=== PATIENT | male | born 1950 | race Caucasian/White ===

== ENCOUNTER 2020-09-18 07:29 | Day surgery (SDC) | payer MEDICARE, SELFPAY ==
[2020-09-12 12:54] VITALS: BMI 22.1
--- NOTE | 2020-09-17 09:06 | P.CONAN_ITS ---
Documented by User: Silva Patel 09/17/20 09:07 HPI - Anesthesia Eval Consult details Narrative: 69yo M for Colonoscopy [facility] Past Medical History Medical History Arthritis COPD (chronic obstructive pulmonary disease) History of back pain History of BPH Surgical History Surgical History History of back surgery History of open reduction and internal fixation (ORIF) procedure Hx of colonoscopy Social History Social History Are you a primary patient care representative to a significant other at home: No Do you presently have visiting nurse or other home services: No Smoking Status: Current every day smoker Packs Per Day: 1 Cigarettes Per Day: 20.0 Years Smoked: 40+ Smoked in Last 30 Days: Yes Patient Interested in Nicotine Replacement: No Patient Given Instructions on How to Stop Smoking: Yes Date Education Initiated: 09/12/20 Use of substances other than those prescribed or required for medical reasons: No Have you been hit, kicked, punched, or otherwise hurt by someone within the past year? If so, by whom?: No Advance Directives: No Advance Directives Information Provided: No Advance Directives on File: No Recently lost weight without trying: No Meds Allergies Allergy/AdvReac Type Severity Reaction Status Date / Time No Known Allergies Allergy Verified 09/18/20 07:40 Home Medications Medication Instructions Recorded Confirmed Type gabapentin 900 mg PO BEDTIME 09/12/20 09/12/20 History ibuprofen [Motrin] 800 mg PO TID PRN 09/12/20 09/12/20 History multivitamin 1 tab PO DAILY 09/12/20 09/12/20 History Exam Exam Date and Time: September 17, 2020 0907 Height,Weight and Vital Signs: Height 5 ft 8 in Weight 66.224 kg Assessment and Plan Assessment Anesthesia Assessment: Chart Reviewed Documented by User: Marely Griffith 09/18/20 08:55 [facility] Past Medical History Medical History Arthritis COPD (chronic obstructive pulmonary disease) History of back pain History of BPH Surgical History Surgical History History of back surgery History of open reduction and internal fixation (ORIF) procedure Hx of colonoscopy Social History Social History Are you a primary patient care representative to a significant other at home: No Do you presently have visiting nurse or other home services: No Smoking Status: Current every day smoker Packs Per Day: 1 Cigarettes Per Day: 20.0 Years Smoked: 40+ Smoked in Last 30 Days: Yes Patient Interested in Nicotine Replacement: No Patient Given Instructions on How to Stop Smoking: Yes Date Education Initiated: 09/12/20 Use of substances other than those prescribed or required for medical reasons: No Have you been hit, kicked, punched, or otherwise hurt by someone within the past year? If so, by whom?: No Advance Directives: No Advance Directives Information Provided: No Advance Directives on File: No Recently lost weight without trying: No Meds Allergies Allergy/AdvReac Type Severity Reaction Status Date / Time No Known Allergies Allergy Verified 09/18/20 07:40 Home Medications Medication Instructions Recorded Confirmed Type gabapentin 900 mg PO BEDTIME 09/12/20 09/12/20 History ibuprofen [Motrin] 800 mg PO TID PRN 09/12/20 09/12/20 History multivitamin 1 tab PO DAILY 09/12/20 09/12/20 History Exam Airway Mallampati Class: III TM Dist: >3cm Neck ROM: Full Denture: Upper and Lower Loose/Missing/Broken Teeth: No Heart: RRR Lungs: CTA Assessment and Plan Assessment Anesthesia Assessment: Anesthesia Plan Discussed and Chart Reviewed Final Anesthetic Review NPO: Yes ASA Class: II Final Preanesthetic Review: Meds/Allgs Chart Reviewed, Consent Obtained/Reviewed and Anes Risks/Benef Reviewed Patient Risk: Low Procedure Risk: Low Anesthetic Plan Anesthetic Plan: MAC: Disposition: Standard PACU
[2020-09-18 07:53] VITALS: BP 139/73; PULSE 77; RESP 18; TEMP 36.3; O2SAT 97
[2020-09-18] MEDS: Lactated Ringers 1,000 ML 100 ML IVCONT (08:09)
[2020-09-18] MEDS: Sodium Phosphate,Mono-Dibasic 133 ML ENEMA PR (08:16)
--- NOTE | 2020-09-18 08:21 | PC.NURSE ---
LIQUID YELLOW WITH FEW STRANDS OF KANG
--- NOTE | 2020-09-18 10:39 | PM.OP ---
Brief Operative Note Date of Service: 09/18/20 Pre-op diagnosis: Screening Post-op diagnosis: other (Colon polyps) Procedure: Colonoscopy to cecum and TI with snare polypectomy and placement of 1 Resolution clip on the transverse colon polypectomy site. Surgeon: Kelton Paul Anesthesia: MAC Estimated blood loss (mL): 3.0 Pathology: other (A. Cecal polyp B. Ascending colon polyp C. Transverse colon polyp D. Polyp at 50cm) Condition: stable Disposition: PACU
--- NOTE | 2020-09-18 10:41 | OP_ITS ---
SURGEON: Kelton Paul MD INDICATIONS: Full consent has been obtained from him for this, including risks of bleeding and perforation. PREOPERATIVE DIAGNOSIS: POSTOPERATIVE DIAGNOSIS: PROCEDURE PERFORMED: Colonoscopy to the cecum and terminal ileum with snare polypectomy, and placement of a resolution clip. ESTIMATED BLOOD LOSS: COMPLICATIONS: ANESTHESIA: Monitored anesthesia care. ASSISTANTS: SPECIMENS: PREOPERATIVE DIAGNOSES: Colorectal cancer screening, personal history of colon polyps, and family history of colon cancer. POSTOPERATIVE DIAGNOSES: Colorectal cancer screening, personal history of colon polyps, and family history of colon cancer, colon polyps, diverticulosis, and internal hemorrhoids. DESCRIPTION OF PROCEDURE: The patient was placed in the left lateral decubitus position. The digital rectal exam revealed no abnormalities. The Olympus video pediatric colonoscope was entered into the rectum and advanced easily to the cecum. Once in the cecum, I did identify normal-appearing cecal pouch other than an approximately 6 mm polyp, which was snared and recovered by suction. The polypectomy site appeared clean, without any sign of residual polyp nor bleeding. The remainder of the cecum appeared normal. The terminal ileum was cannulated and appeared normal. The scope was then slowly withdrawn assessing all mucosal surfaces carefully. Preparation was excellent. In the ascending colon, was a flat approximately 5 or 6 mm polyp, which was snared and recovered by suction. The polypectomy site appeared clean, without any sign of residual polyp nor bleeding. In the transverse colon, was an approximately 8 mm polyp, which was snared and recovered by suction. There was some persistent oozing at the polypectomy site and a single resolution clip was applied with good hemostasis. The area was irrigated and observed and there was no sign of any active bleeding. At 50 cm, there was a flat approximately 8 mm polyp, which was snared and recovered by suction. The polypectomy site appeared clean, without any sign of residual polyp nor bleeding. I did not visualize any other polyps, colitis, nor angiodysplasia. There was a mild amount of sigmoid diverticulosis. In the rectum, scope was retroflexed visualizing small internal hemorrhoids, but no other pathology. The rectal mucosa appeared normal. The scope was straightened out and withdrawn from the patient. He tolerated the procedure well and was returned to the recovery area in stable condition. IMPRESSION: 1. Colon polyps, status post snare polypectomy. 2. Placement of a single resolution clip on the transverse colon and polypectomy site. 3. Diverticulosis. 4. Internal hemorrhoids. PLAN: The results of the pathology will be checked. Given today's findings and his previous history, as well as his family history, I would recommend a followup colonoscopy in 3 years for further surveillance. He will otherwise see me on a p.r.n. basis. He was advised not to use any aspirin and NSAIDs for 1 week. This has been discussed with his . MD RAINA Roberts/PAWEL / [id number]
== END 2020-09-18 10:35 | disposition home or self-care (01) ==
LOC: HO.SSS 07:29
PROVIDERS: PCP Internal Medicine; Visit Provider Internal Medicine
PROC: 0DJD8ZZ Inspection of Lower Intestinal Tract, Via Natural or Artificial Opening Endoscopic (ICD-10-PCS; CPT 45378; principal; 2020-09-18 08:30)
DX: Z12.11 Encounter for screening for malignant neoplasm of colon (principal); D12.0 Benign neoplasm of cecum; D12.2 Benign neoplasm of ascending colon; D12.3 Benign neoplasm of transverse colon; D12.6 Benign neoplasm of colon, unspecified; K57.30 Diverticulosis of large intestine without perforation or abscess without bleeding; K64.8 Other hemorrhoids; Z86.010 Personal history of colon polyps; Z80.0 Family history of malignant neoplasm of digestive organs
CPT/HCPCS: 45385; 88305

== ENCOUNTER 2021-06-17 12:24 | Outpatient (REF) | payer MEDICARE, SELFPAY ==
[2021-06-17 13:57] LABS: MANUAL DIFF FLAG NO
[2021-06-17 14:09] LABS: Basophils Percent Auto 0.5 % (0-2); Eosinophils Absolute Auto 0.5 X10*3/uL (0.0-0.4); Eosinophils Percent Auto 6.4 % (0-4); Hematocrit 53.4 % (42-52); Imm Gran Abs Auto 0.02 X10*3/uL (0.00-0.03); Imm Gran Pct Auto 0.3 % (0.0-0.4); Lymphocytes Absolute Auto 1.7 X10*3/uL (1.2-4.9); Mean Corpuscular HGB Conc 33.7 g/dl (31.0-36.0); Mean Corpuscular Hemoglobin 32.7 pg (27.0-33.0); Mean Corpuscular Volume 96.9 fL (80-98); Mean Platelet Volume 8.6 fL (9.4-12.4); Monocytes Absolute Auto 0.7 X10*3/uL (0.1-1.2); Neutrophils Absolute Auto 4.9 X10*3/uL (2.0-8.3); Neutrophils Percent Auto 61.8 % (45-73); Platelet Count 266 X10*3/uL (160-400); Red Blood Count 5.51 X10*6/uL (4.60-5.80); Red Cell Distribution Width 13.3 % (11.0-16.0); White Blood Count 7.9 X10*3/uL (4.8-10.8)
[2021-06-17 14:14] LABS: Alanine Aminotransferase 9 U/L (0-40); Alkaline Phosphatase 63 U/L (39-117); Anion Gap 13 (12-20); Aspartate Amino Transferase 17 U/L (5-37); Bilirubin Total 0.8 mg/dL (0.0-1.0); Blood Urea Nitrogen 14 mg/dL (9-16); Calcium 9.5 mg/dL (8.4-10.2); Carbon Dioxide 26 mmol/L (22-29); Chloride 104 mmol/L (96-108); Estimated Glomerular Filt Rate 59; Glucose Random 108 mg/dL (60-115); Potassium 4.3 mmol/L (3.3-5.1); Sodium 139 mmol/L (135-145); Total Protein 6.9 g/dL (6.5-8.0)
== END 2021-06-17 12:25 | disposition home or self-care (01) ==
LOC: HO.HMGCLDS 12:24
PROVIDERS: PCP Internal Medicine; Visit Provider Internal Medicine
DX: Z01.818 Encounter for other preprocedural examination (principal); H26.9 Unspecified cataract
CPT/HCPCS: 36415; 80053; 85025

== ENCOUNTER 2021-09-24 10:09 | Outpatient (REF) | payer MEDICARE, SELFPAY ==
[2021-09-24 11:42] LABS: MANUAL DIFF FLAG NO
[2021-09-24 11:47] LABS: Basophils Percent Auto 0.4 % (0-2); Eosinophils Absolute Auto 0.6 X10*3/uL (0.0-0.4); Eosinophils Percent Auto 8.5 % (0-4); Hematocrit 50.5 % (42.0-52.0); Hemoglobin 16.8 g/dl (14.0-18.0); Imm Gran Abs Auto 0.03 X10*3/uL (0.00-0.03); Imm Gran Pct Auto 0.4 % (0.0-0.4); Lymphocytes Absolute Auto 1.6 X10*3/uL (1.2-4.9); Lymphocytes Percent Auto 22.7 % (20-40); Mean Corpuscular HGB Conc 33.3 g/dl (31.0-36.0); Mean Corpuscular Hemoglobin 31.9 pg (27.0-33.0); Mean Platelet Volume 8.3 fL (9.4-12.4); Monocytes Absolute Auto 0.7 X10*3/uL (0.1-1.2); Monocytes Percent Auto 9.6 % (2-11); Neutrophils Absolute Auto 4.1 x10*3/uL (2.0-8.3); Neutrophils Percent Auto 58.4 % (45-73); Platelet Count 264 X10*3/uL (160-400); Red Blood Count 5.26 X10*6/uL (4.60-5.80); Red Cell Distribution Width 12.8 % (11.0-16.0); White Blood Count 7.1 X10*3/uL (4.8-10.8)
[2021-09-24 12:01] LABS: Alanine Aminotransferase 15 U/L (0-40); Albumin Level 3.8 g/dL (3.5-5.0); Alkaline Phosphatase 67 U/L (39-117); Anion Gap 12 (12-20); Aspartate Amino Transferase 17 U/L (5-37); Bilirubin Total 0.6 mg/dL (0.0-1.0); Blood Urea Nitrogen 16 mg/dL (9-16); Calcium 9.3 mg/dL (8.4-10.2); Carbon Dioxide 29 mmol/L (22-29); Chloride 102 mmol/L (96-108); Cholesterol 213 mg/dL; Estimated Glomerular Filt Rate 58; Glucose Fasting 97 mg/dL (60-99); HDL Cholesterol 55 mg/dL; LDL Cholesterol Calculated 131 mg/dl; Potassium 4.4 mmol/L (3.3-5.1); Sodium 139 mmol/L (135-145); Total Protein 6.8 g/dL (6.5-8.0); Triglycerides 137 mg/dL
[2021-09-24 12:24] LABS: TSH reflex Free T4 1.54 uIU/mL (0.32-4.0)
== END 2021-09-24 10:10 | disposition home or self-care (01) ==
LOC: HO.HMGCLDS 10:09
PROVIDERS: PCP Internal Medicine; Visit Provider Internal Medicine
DX: E78.9 Disorder of lipoprotein metabolism, unspecified (principal); I73.9 Peripheral vascular disease, unspecified; M79.604 Pain in right leg
CPT/HCPCS: 36415; 80053; 80061; 84443; 85025

== ENCOUNTER → 2021-09-30 10:57 | Outpatient (BNVA) | payer MEDICARE, SELFPAY | PROVIDERS: PCP Internal Medicine; Visit Provider Surgery Vascular Surgery | DX: I73.9 Peripheral vascular disease, unspecified (principal) | CPT/HCPCS: 99202 ==

== ENCOUNTER 2021-10-21 13:34 | Outpatient (REF) | payer MEDICARE, SELFPAY ==
--- NOTE | ~2021-10-21 | US_ITS ---
EXAMINATION: ULTRASOUND ARTERIAL DUPLEX LOWER EXTREMITY BILATERAL CLINICAL INFORMATION: Peripheral vascular disease COMPARISON: None TECHNIQUE: Multiple 2-D grayscale and duplex Doppler ultrasound images of the arteries of the bilateral lower extremities were obtained. FINDINGS: Duplex Doppler interrogation of the bilateral lower extremities showed normal tri and biphasic arterial waveforms. Arterial peak systolic velocities are as follows: RIGHT: Common femoral: 94 cm/sec Profunda femoral: 30 cm/sec Superficial femoral proximal: 67 cm/sec Superficial femoral mid: 55 cm/sec. Superficial femoral distal: 56 cm/sec Popliteal: 35 cm/sec. Peroneal: 27 cm/sec Posterior tibial (prox/mid/distal): 28/35/46cm/sec Ankle-brachial index: 0.56 LEFT: Common femoral: 106 cm/sec Profunda femoral: 28 cm/sec Superficial femoral proximal: 70 cm/sec Superficial femoral mid: 61 cm/sec. Superficial femoral distal: 51 cm/sec Popliteal: 34 cm/sec. Peroneal: 33 cm/sec Posterior tibial (prox/mid/distal): 12/12/33cm/sec Ankle-brachial index: 0.67 Mild to severe echogenic atherosclerotic plaque is seen bilaterally most pronounced distally. US/US arterial duplex LE BI IMPRESSION: 1. No hemodynamically significant arterial stenosis bilaterally. 2. Moderate to severe echogenic atherosclerotic plaque, most pronounced distally.
== END 2021-10-21 13:35 | disposition home or self-care (01) ==
LOC: HO.US 13:34
PROVIDERS: PCP Internal Medicine; Visit Provider Surgery Vascular Surgery
DX: I73.9 Peripheral vascular disease, unspecified (principal)
CPT/HCPCS: 93925

== ENCOUNTER → 2021-10-28 10:22 | Outpatient (BNVA) | payer MEDICARE, SELFPAY | PROVIDERS: PCP Internal Medicine; Visit Provider Surgery Vascular Surgery | DX: I73.9 Peripheral vascular disease, unspecified (principal) | CPT/HCPCS: 99212 ==

== ENCOUNTER 2021-11-19 05:55 | Day surgery (SDC) | payer MEDICARE, SELFPAY ==
[2021-11-19] VITALS (8 sets, daily range): BP systolic 122–143; BP diastolic 57–89; PULSE 64–80; RESP 18; TEMP 36.6–36.7; O2SAT 98; BMI 23.0
[2021-11-19 06:37] LABS: MANUAL DIFF FLAG NO
[2021-11-19 06:39] LABS: Basophils Percent Auto 0.5 % (0-2); Eosinophils Percent Auto 12.9 % (0-4); Hematocrit 50.3 % (42.0-52.0); Hemoglobin 16.7 g/dl (14.0-18.0); Imm Gran Abs Auto 0.02 X10*3/uL (0.00-0.03); Imm Gran Pct Auto 0.2 % (0.0-0.4); Lymphocytes Absolute Auto 1.8 X10*3/uL (1.2-4.9); Lymphocytes Percent Auto 22.6 % (20-40); Mean Corpuscular HGB Conc 33.2 g/dl (31.0-36.0); Mean Corpuscular Hemoglobin 31.9 pg (27.0-33.0); Mean Platelet Volume 8.2 fL (9.4-12.4); Monocytes Absolute Auto 0.6 X10*3/uL (0.1-1.2); Monocytes Percent Auto 7.2 % (2-11); Neutrophils Absolute Auto 4.5 x10*3/uL (2.0-8.3); Neutrophils Percent Auto 56.6 % (45-73); Platelet Count 274 X10*3/uL (160-400); Red Blood Count 5.24 X10*6/uL (4.60-5.80); Red Cell Distribution Width 13.2 % (11.0-16.0)
[2021-11-19 06:58] LABS: Blood Urea Nitrogen 16 mg/dL (9-16); Creatinine Clr Calc Pharmacy 52.7; Estimated Glomerular Filt Rate 57
[2021-11-19] MEDS: iohexoL 300 MG/ML 100 ML INFUS..BTL IV (09:12)
--- NOTE | 2021-11-19 09:30 | P.OP_ITS ---
Operative Note Operative Note Date of Service: 11/19/21 Narrative: Angiogram report from [facility] Preoperative diagnosis: Atherosclerosis of bilateral lower extremity with activity limiting claudication Postoperative diagnosis: Same Procedure: 1. Ultrasound-guided left common femoral access 2. Ultrasound-guided right common femoral access 3. Aortogram with right lower extremity runoff Surgeon:Corby Vences M.D., FACS, RPVI Galvanizer Zinc:None Anesthesia: Local with moderate conscious sedation. Total intraservice moderate sedation time was 32 minutes. I monitored the patient's level of consciousness and physiologic status continuously throughout the procedure. Specimens:none Drains:none Estimated blood loss: Less than 10 ml Implant: None Indications: 70-year-old gentleman with severe activity limiting claudication. He had noninvasive testing demonstrating atherosclerotic disease. He now presents for endovascular intervention The patient has signed the informed consent after reviewing risks, complications, benefits, and alternatives previously discussed with the patient. The patient was given the opportunity to ask any additional questions or voice any concerns. All questions were answered to the patient's satisfaction. Procedure in detail: Patient was brought to the angiography suite prior to which a time-out was called for patient identification and site verification. Bilateral groins were prepped and draped in the standard surgical fashion. Under ultrasound guidance left common femoral was punctured with micro puncture needle and wire. We were unable to advance the catheter. We subsequently turned our attention to the right side. We used a micro puncture needle and wire. We were able to advance the catheter in to the external iliac. Subsequently a 5 Wolof micro sheath was then placed. Aortogram was then undertaken from the groin. Through the micro sheath we then performed a right lower extremity runoff. Procedure was then terminated. Sheath was removed and there direct pressure was held for 10 minute Interpretation of films: 1. Ultrasound demonstrates appropriate femoral puncture of right and left. Image of which was saved. 2. Aortogram demonstrates appropriate caliber aorta, with severe atherosclerotic disease at the distal end. 3. Iliac images demonstrate left-sided total occlusion, right side severe disease throughout 4. Right Leg Common femoral artery: Significant disease with at least 50% luminal narrowing Profundus Femoris: No significant disease Superficial femoral artery: Patent all the way through Popliteal artery (p1,p2,p3): Normal Anterior tibial artery: No significant disease Peroneal artery: Diminutive but present Posterior tibial artery: No significant disease Dorsalis pedis/plantar arch: Unable to reflux contrast down through the pedal arch Conclusion: 1. Significant aortic atherosclerotic disease per along with iliacs. Unable to image. Patient will require CT angiogram 2. Anticoagulation status: No change This note is constructed using voice recognition software. While every effort has been made to ensure accuracy, real estate development manager errors may have been included. Thank you for allowing me to participate in the care of your patient. Yours sincerely, Corby Vences MD, FACS, R.P.V.I.
== END 2021-11-19 09:40 | disposition home or self-care (01) ==
PROVIDERS: PCP Internal Medicine; Visit Provider Surgery Vascular Surgery
DX: I70.211 Atherosclerosis of native arteries of extremities with intermittent claudication, right leg (principal); M79.661 Pain in right lower leg; J44.9 Chronic obstructive pulmonary disease, unspecified; Z87.891 Personal history of nicotine dependence
CPT/HCPCS: 36246; 36415; 75630; 76937; 82565; 84520; 85025; 99152; 99153; J2250; J3010; Q9967

== ENCOUNTER 2021-11-25 09:24 | Outpatient (REF) | payer MEDICARE, SELFPAY ==
--- NOTE | ~2021-11-25 | CT_ITS ---
STUDY PERFORMED: CT ANGIOGRAPHY ABDOMEN, PELVIS AND LOWER EXTREMITY RUNOFF WITH CONTRAST HISTORY: Peripheral vascular disease. DESCRIPTION: Routine abdominal aorta and lower extremity runoff CTA protocol with contrast was performed. 100 mL of Omnipaque 350 was administered. 3D POSTPROCESSING: Multiple 3-D angiographic images were processed from the initial data set by the [facility] under concurrent physician supervision. DLP: 625 mGy-cm. COMPARISON: Angiogram right lower extremity 11/19/2021. FINDINGS: VASCULAR: Abdominal Aorta: The distal thoracic aorta appears normal. The upper abdominal aorta appears normal. There is abrupt occlusion of the aorta at a level just below the renal arteries. There are enlarged visualized distal internal mammary arteries and inferior epigastric arteries as well as lateral thoracic arteries contributing to collateral flow. Right Lower Extremity: - Common Iliac Artery: Occluded. - Internal Iliac Artery: Occluded. - External Iliac Artery: Occluded. - Common Femoral Artery: Distal reconstitution with posterior plaque present. - Profunda Femoral Artery: Patent with some mild proximal disease. - Superficial Femoral Artery: Widely patent with a mild approximately 50% area of stenosis at the adductor canal ([id number]). - Popliteal Artery: Widely patent. - Posterior Tibial Artery: Normal. - Peroneal Artery: Normal. - Anterior Tibial Artery: Widely patent with some mild disease. Left Lower Extremity: - Common Iliac Artery: Occluded. - Internal Iliac Artery: Occluded. - External Iliac Artery: Occluded. - Common Femoral Artery: Distal reconstitution with posterior plaque. - Profunda Femoral Artery: Patent. - Superficial Femoral Artery: Some minimal disease at the adductor canal without significant stenosis. - Popliteal Artery: Patent. - Posterior Tibial Artery: Patent. - Peroneal Artery: Patent. - Anterior Tibial Artery: Patent. Celiomesenteric Arteries: The celiac and SMA are widely patent. The SUZANNE is occluded as it arises from the occluded segment of the infrarenal aorta. Renal Arteries: 2 renal arteries on each side which are patent. NONVASCULAR: Lung Bases: The visualized lung bases are unremarkable. Liver, Gallbladder and Biliary Tree: The liver is normal in size, shape, and attenuation. No focal hepatic lesion or biliary ductal dilatation is present. The gallbladder is unremarkable with no evidence of radiopaque gallstones, gallbladder wall thickening, or obvious pericholecystic inflammatory changes. Pancreas: Unremarkable. Spleen: Unremarkable. Adrenal Glands: Unremarkable. Kidneys and Ureters: The kidneys are normal in size, shape, and attenuation. Benign Bosniak class I renal cysts are present . No further imaging or follow-up is necessary. No solid renal masses are seen. No hydronephrosis, hydroureter, or calculi seen. No perinephric stranding. Bladder: Unremarkable. Gastrointestinal Tract: The small and large bowel are unremarkable. The appendix is unremarkable. Abdominal Wall: No significant hernia is appreciated. Lymph Nodes: No retroperitoneal lymphadenopathy. Pelvic Viscera: Unremarkable. Osseous Structures: Marked degenerative changes in the spine from L1 through L5. No bony destructive lesions. CT/CT angio abd aorta runoff IMPRESSION: 1. 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 2. On the right, there is an approximately 50% stenosis at the adductor canal in the SFA with 3-vessel runoff noted. 3. On the left, there is minimal disease in the SFA with 3-vessel runoff. 4. Nonvascular findings as described above.
[2021-11-25] MEDS: iohexoL 350 MG/ML 100 ML INFUS..BTL IV (10:13)
== END 2021-11-25 09:25 | disposition home or self-care (01) ==
LOC: HO.CT 09:24
PROVIDERS: Visit Provider Surgery Vascular Surgery
DX: I73.9 Peripheral vascular disease, unspecified (principal)
CPT/HCPCS: 75635; Q9967

== ENCOUNTER → 2021-12-02 08:56 | Outpatient (BNVA) | payer MEDICARE, SELFPAY | PROVIDERS: PCP Internal Medicine; Visit Provider Surgery Vascular Surgery | DX: I74.09 Other arterial embolism and thrombosis of abdominal aorta (principal) | CPT/HCPCS: 99212 ==

== ENCOUNTER → 2021-12-04 10:20 | Outpatient (BNVA) | payer MEDICARE, SELFPAY | PROVIDERS: PCP Internal Medicine; Referring Provider Surgery Vascular Surgery; Visit Provider Internal Medicine | DX: Z01.810 Encounter for preprocedural cardiovascular examination (principal); I74.09 Other arterial embolism and thrombosis of abdominal aorta | CPT/HCPCS: 93005; 99202 ==

== ENCOUNTER → 2021-12-10 | Outpatient (REF) | payer MEDICARE, SELFPAY ==
--- NOTE | 2021-12-11 06:59 | CA_ITS ---
Acquisition Time: 2021-12-11 07:58:49 Total Exercise Time: 00:02:00 Test Indications: Ischemia Evaluation Medications: ELIQUIS ASA ROSUVASTATIN Protocol: LEXISCAN Max HR: 098 BPM 65% of Pred: 149 BPM Max BP: 154/072 mmHG Max Work Load: 1.0 METS Pharmacological stress test with Lexiscan injection, while sitting and exercising right arm, without anginal symptoms, with runs of atrial bigeminy following injection and in recovery, with normotensive response to injection, with nondiagnostic EKG for ischemia. In recovery he reported a latigue and heaviness in his arms and legs that was treated with Aminophylline 75mg IVP to reverse Lexiscan with resolution of symptom. Nuclear images pending. Test reviewed with Dr Flanagan. Referred By: Phillip Reza Overread By: SUE ROLLINS
--- NOTE | 2021-12-11 06:59 | CA_ITS ---
Transthoracic Echocardiogram Patient (Last, First, Middle): Kelton Clark R Gender: Male Date of : 1950 Age: 71 Procedure Date: 12/11/2021 Procedure Type: Transthoracic Echocardiogram Location: OP Height: 172.72 cm Weight: 70.31 kg BSA: 1.83 m2 Heart Rate: bpm BP: 138 / 73 mmHg Horses Or Mules Teamster: THALIA Arvizu MD: Phillip Reza MD Welfare Worker: Bert Flanagan MD Symptoms: I25.10 - Atherosclerotic heart disease of [place] coronary... Study Quality: Fair ECG Rhythm: Sinus Conclusions: - 1. Normal LV systolic function with grade 1 diastolic dysfunction 2. Fibrocalcific aortic valve changes noted with normal cardiac valvular Doppler 3. Normal RV systolic pressure 4. No gross pericardial effusion Findings Left Ventricle Normal left ventricular size, thickness, and systolic function. The visually estimated ejection fraction is between 60-65%. There is no evidence of regional wall motion abnormalities. Spectral Doppler is indicative of an impaired relaxation filling pattern. E/E prime ratio is <8, consistent with normal filling pressures. Evidence suggests grade I (mild) diastolic dysfunction. Right Ventricle Normal right ventricular cavity size and systolic function. Atria Both atria are normal in size. There is no evidence of interatrial shunt. Aortic Valve There is mild calcification of the aortic valve. There is mild thickening of the aortic valve. There is no aortic valve stenosis. There is no aortic valve regurgitation. Mitral Valve There is mild anterior and posterior mitral leaflet thickening. There is mild mitral annular calcification. There is trace mitral valve regurgitation. There is no mitral valve stenosis. Pulmonic Valve The pulmonic valve was not well visualized. Tricuspid Valve Likely normal tricuspid valve structure and function. There is trace tricuspid valve regurgitation. The right ventricular systolic pressure is normal. The right ventricular systolic pressure is 23 mmHg. Normal right atrial pressure. There is no evidence of pulmonary hypertension. Great Vessels All visible segments of the aorta are normal in size. The pulmonary artery was not well visualized. Small plaque is seen in the sino tubular ridge and ascending aorta. Venous The inferior vena cava is normal in size and collapses greater than 50% with inspiration. Pericardium/Pleural There is no evidence of pericardial effusion. Prior Study Comparison No prior study available for comparison. Measurements 2D Linear Measurements IVSd: 1.01 0.6-0.9/0.6-1.0 cm LVIDd: 3.95 3.9-5.3/4.2-5.9 cm LVIDd Index: 2.16 2.4-3.2/2.2-3.1 cm/m2 LVIDs: 2.57 2.0-3.6 cm LVPWd: 1.03 0.7-1.1 cm LA Diam: 3.10 2.7-3.8/3.0-4.0 cm LAIDs Index: 1.69 1.5-2.3 cm/m2 LV Mass: 159.42 67-162/88-224 g LV Mass Index: 87.12 43-95/49-115 g/m2 LVOT Diam: 2.30 3.0+(-)1.3 cm 2D Systolic Function EF 4C: 63.30 >55% EF 2C: 64.80 >55% EF BiP: 63.40 >55% Mitral Valve MV Pk E: 0.84 MV PK A: 1.08 MV Decel Time: 257.00 E/A: 0.80 E'Lateral: 9.68 E'Medial: 10.40 E/E' Med: 8.00 E/E' Lat: 8.60 PHT: 75.00 MVA PHT: 2.93 Decel Stone: 3.24 Aortic Valve AoV Pk Vince: 1.42 AoV Mn Vince: 0.94 AoV VTI: 0.25 AoV Pk Grad: 8.00 Aov Mn Grad: 4.00 ALEXANDRO Cont.VTI: 3.57 LVOT LVOT Pk Vince: 1.16 LVOT Mn Vince: 0.71 LVOT VTI: 0.21 LVOT Pk Grad: 5.00 LVOT Mn Grad: 2.00 LVOT Diam: 2.30 LVOT Area: 4.15 Diastolic Function MV Pk E: 0.84 MV Pk A: 1.08 E/A: 0.80 E'Medial: 10.40 E/E' Med: 8.00 E' Laterial: 9.68 E/E' Lat: 8.60 Right Ventricle TAPSE (mm): 22.40 TVS' Vince: 13.80 Tricuspid Valve TR Pk Vince: 2.23 TR Pk Grad: 20.00 RA Press: 3.00 RVSP: 23.00 Great Vessels Aorta Sinus of Valsalva: 3.15 2.0-3.[address] Ridge: 2.55 1.7-3.4 cm Ao Asc: 2.50 2.1-3.4 cm Ao Arch: 2.70 Updated in Other Vendor System with Status of Final Bert Flanagan MD electronically signed on 12/12/2021 11:54:37 AM with status of Final
== END ==
LOC: HO.CARD
PROVIDERS: PCP Internal Medicine; Visit Provider Internal Medicine
DX: Z01.810 Encounter for preprocedural cardiovascular examination (principal); I74.09 Other arterial embolism and thrombosis of abdominal aorta; I25.10 Atherosclerotic heart disease of native coronary artery without angina pectoris
CPT/HCPCS: 93017; 93306

== ENCOUNTER → 2021-12-11 06:55 | Outpatient (REF) | payer MEDICARE, SELFPAY ==
--- NOTE | ~2021-12-11 | NM_ITS ---
Myocardial perfusion study Indication: Preoperative cardiovascular risk stratification Technique: The patient was brought in for a Lexiscan perfusion study on 12/11/2021. Patient performed low-level exercise and was injected 0.4 mg of Lexiscan intravenously. Within a minute of injection, 25 mCi of sestamibi was given intravenously. Images were obtained using the SPECT gamma camera interlaced with the gating device. Images were obtained in supine position. Resting perfusion study was performed on 12/12/2021. Patient was administered 25 mCi of sestamibi intravenously at rest. Images were then obtained in supine position. Images obtained with CT attenuation. Total DLP 85 mGy-cm. Images were processed with the software and compared side to side in short axis, horizontal long axis and vertical long axis views. Findings: The stress perfusion study showed non attenuated images show mildly reduced uptake in the basal inferior wall of the basal inferoseptal wall of the LV myocardium. Remainder of the LV myocardium is normally perfused. Attenuation corrected images show of the distal anterior wall of the LV myocardium otherwise normal uptake in all segments.. The gated study shows normal LV systolic function with calculated LVEF of 64%. LV cavity is normal in size. The gated study shows normal systolic wall thickening and contraction of segments. Resting study shows no significant improvement perfusion study. Gating at rest reveals systolic wall motion with ejection fraction at 59%. The findings are consistent with no clear reversible defect suggestive of ischemia. NM/NM cardiolite stress test Impression: 1. Myocardial perfusion imaging study shows likely normal perfusion 2. Gated LVEF is 64% 3. Transient ischemic dilatation not present EKG is nondiagnostic for ischemia
== END ==
LOC: HO.CARD 06:55
PROVIDERS: PCP Internal Medicine; Visit Provider Internal Medicine
DX: Z01.810 Encounter for preprocedural cardiovascular examination (principal); I74.09 Other arterial embolism and thrombosis of abdominal aorta
CPT/HCPCS: 78452; A9500; J0280; J2785

== ENCOUNTER 2021-12-29 06:20 | Inpatient (IN) | payer MEDICARE, SELFPAY ==
[2021-12-17 12:58] VITALS: BP 145/67; PULSE 84; RESP 20; O2SAT 98; BMI 22.1
--- NOTE | 2021-12-17 13:14 | HO.ANESPROP2 ---
Documented by User: Silva Patel NP 12/25/21 14:30 HPI - Anesthesia Eval Consult details Narrative: 71yo M for Open Aortoiliac Bi Femoral Bypass Cardiac eval Echocardiogram/stress test findings noted. May proceed with vascular surgery. Intermediate cardiac risk. Eliquis for PVD PMFSH Active Problems Active Problems: All Active Problems (Updated 12/17/21 @ 12:57 by Paula Chavez, RN) Pre-op evaluation (Acute) Cataract (Acute) Lipid disorder (Acute) Leg pain, right (Acute) Peripheral vascular disease (Acute) Aortoiliac occlusive disease (Acute) Preop cardiovascular exam (Acute) Past Medical History Medical History (Updated 12/17/21 @ 13:20 by Paula Chavez RN) Arthritis CAD (coronary artery disease) COPD (chronic obstructive pulmonary disease) Elevated cholesterol History of back pain History of BPH On anticoagulant therapy PVD (peripheral vascular disease) Surgical History Surgical History (Updated 12/16/21 @ 12:34 by Paula Chavez RN) History of back surgery History of open reduction and internal fixation (ORIF) procedure Hx of colonoscopy Social History Social History Housing: House Are you a primary respiratory care instructor to a significant other at home: No Do you presently have visiting nurse or other home services: No Patient Tobacco Use Status: Current everyday Tobacco user Tobacco use type: Cigarette Cigarette Packs Per Day: 1 Cigarettes Per Day: 15 Years Smoked: 50 Smoked in Last 30 Days: Yes Patient Interested in Nicotine Replacement: Yes Patient Given Instructions on How to Stop Smoking: Yes Date Education Initiated: 12/17/21 Second Hand Smoke Exposure: No Use of substances other than those prescribed or required for medical reasons: Yes Substance Use Frequency: Occasionally Have you been hit, kicked, punched, or otherwise hurt by someone within the past year? If so, by whom?: No Are you DNR?: Yes Advance Directives: No Advance Directives Information Provided: Yes Advance Directives on File: No Recently lost weight without trying: No Eating poorly because of decreased appetite: No Nutrition Risks: No Nutritional Risk Poor oral hygiene: No (Full Dentures) Current occupational status: retired Narrative Narrative: No recent illness RUSHING at baseline, cutting back on smoking. No CP. Very minimal activity d/t PVD Meds Allergies Allergy/AdvReac Type Severity Reaction Status Date / Time No Known Allergies Allergy Verified 12/16/21 13:27 Home Medications Medication Instructions Recorded Confirmed Last Taken Type aspirin 81 mg tablet,delayed 81 mg PO DAILY 12/02/21 12/16/21 Unknown History release (Adult Aspirin Regimen) ibuprofen 800 mg tablet 800 mg PO Q8H 12/02/21 12/16/21 Unknown History Exam Exam Date and Time: December 17, 2021 1314 Height,Weight and Vital Signs: Height 5 ft 10 in Weight 69.853 kg Last Vital Signs Pulse 84 12/17/21 12:58 Resp 20 12/17/21 12:58 BP 145/67 H 12/17/21 12:58 Pulse Ox 98 12/17/21 12:58 Narrative Narrative: EKG 12/2021 sinus rhythm at 65/Min; rightward axis; no significant ST-T changes and otherwise unremarkable. ECHO 12/2021 Conclusions: - 1.? Normal LV systolic function with grade 1 diastolic ? dysfunction? 2. Fibrocalcific aortic valve changes noted with normal cardiac? valvular Doppler ? 3.? Normal RV systolic pressure? 4. No gross pericardial effusion ?? NM cardiolite stress test 12/2021 Impression: ? 1.? Myocardial perfusion imaging study shows likely normal perfusion 2.? Gated LVEF is 64% 3. Transient ischemic dilatation not present ? EKG is nondiagnostic for ischemia ? CT angio abd aorta runoff 11/2021 IMPRESSION: 1.? 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 2.? On the right, there is an approximately 50% stenosis at the adductor canal in the SFA with 3-vessel runoff noted. 3.? On the left, there is minimal disease in the SFA with 3-vessel runoff. 4.? Nonvascular findings as described above. Airway Mallampati Class: II TM Dist: >3cm Neck ROM: Full Denture: Upper and Lower Heart: RRR Lungs: CTAB Assessment and Plan Assessment Anesthesia Assessment: Anesthesia Plan Discussed, Smoking Cess. Discussed and PAT Visit Documented by User: Gee Denis MD 12/29/21 18:20 HPI - Anesthesia Eval Consult details Narrative: 71yo M for Open Aortoiliac Bi Femoral Bypass Cardiac eval Echocardiogram/stress test findings noted. May proceed with vascular surgery. Intermediate cardiac risk. Eliquis for PVD Aspirin and Eliquis both on hold as per vascular surgeon . CHronic back pain with radiation to lower extremities . [facility] Past Medical History Medical History (Updated 12/17/21 @ 13:20 by Paula Chavez RN) Arthritis CAD (coronary artery disease) COPD (chronic obstructive pulmonary disease) Elevated cholesterol History of back pain History of BPH On anticoagulant therapy PVD (peripheral vascular disease) Family History Family history of problems with anesthesia: No Surgical History Surgical History (Updated 12/16/21 @ 12:34 by Paula Chavez RN) History of back surgery History of open reduction and internal fixation (ORIF) procedure Hx of colonoscopy History of Problems with Anesthesia: No Social History Social History Housing: House Are you a primary respiratory care instructor to a significant other at home: No Do you presently have visiting nurse or other home services: No Patient Tobacco Use Status: Current everyday Tobacco user Tobacco use type: Cigarette Cigarette Packs Per Day: 1 Cigarettes Per Day: 15 Years Smoked: 50 Smoked in Last 30 Days: Yes Patient Interested in Nicotine Replacement: Yes Patient Given Instructions on How to Stop Smoking: Yes Date Education Initiated: 12/17/21 Second Hand Smoke Exposure: No Use of substances other than those prescribed or required for medical reasons: Yes Substance Use Frequency: Occasionally Have you been hit, kicked, punched, or otherwise hurt by someone within the past year? If so, by whom?: No Are you DNR?: Yes Advance Directives: No Advance Directives Information Provided: Yes Advance Directives on File: No Recently lost weight without trying: No Eating poorly because of decreased appetite: No Nutrition Risks: No Nutritional Risk Poor oral hygiene: No (Full Dentures) Current occupational status: retired Meds Allergies Allergy/AdvReac Type Severity Reaction Status Date / Time No Known Allergies Allergy Verified 12/16/21 13:27 Home Medications Medication Instructions Recorded Confirmed Last Taken Type aspirin 81 mg tablet,delayed 81 mg PO DAILY 12/02/21 12/16/21 Unknown History release (Adult Aspirin Regimen) ibuprofen 800 mg tablet 800 mg PO Q8H 12/02/21 12/16/21 Unknown History Assessment and Plan Final Anesthetic Review Family History of Problems with Anesthesia: No History of Problems with Anesthesia: No NPO: Yes ASA Class: III Final Preanesthetic Review: Meds/Allgs Chart Reviewed, Consent Obtained/Reviewed and Anes Risks/Benef Reviewed Patient Risk: High Procedure Risk: High Anesthetic Plan Anesthetic Plan: GA Disposition: Inp. Admit - ICU
[2021-12-17 14:57] LABS: Hematocrit 51.5 % (42.0-52.0); Hemoglobin 16.7 g/dl (14.0-18.0); Mean Corpuscular HGB Conc 32.4 g/dl (31.0-36.0); Mean Corpuscular Hemoglobin 31.2 pg (27.0-33.0); Mean Corpuscular Volume 96.3 fL (80.0-98.0); Mean Platelet Volume 8.4 fL (9.4-12.4); Platelet Count 262 X10*3/uL (160-400); Red Blood Count 5.35 X10*6/uL (4.60-5.80); Red Cell Distribution Width 13.1 % (11.0-16.0); White Blood Count 6.5 X10*3/uL (4.8-10.8)
[2021-12-17 15:02] LABS: Prothrombin Time 11.6 SEC (9.9-13.0)
[2021-12-17 15:05] LABS: Partial Thromboplastin Time 35.7 SEC (24.1-38.0)
[2021-12-17 15:18] LABS: Anion Gap 11 (12-20); Blood Urea Nitrogen 14 mg/dL (9-16); Calcium 9.3 mg/dL (8.4-10.2); Carbon Dioxide 29 mmol/L (22-29); Chloride 100 mmol/L (96-108); Creatinine Clr Calc Pharmacy 57.7; Estimated Glomerular Filt Rate > 60; Glucose Random 89 mg/dL (60-115); Potassium 4.5 mmol/L (3.3-5.1); Sodium 135 mmol/L (135-145)
[2021-12-29] VITALS (20 sets, daily range): BP systolic 106–172; BP diastolic 48–82; PULSE 64–92; RESP 11–20; TEMP 36.4–36.9; O2SAT 95–100
[2021-12-29] MEDS: Lactated Ringers 1,000 ML 100 ML IVCONT ×2 (06:30→07:28)
[2021-12-29 06:48] LABS: COVID-19 Test Negative (Negative); IDNOW Serial# 55D5AD1C
--- NOTE | 2021-12-29 07:53 | MHC.SHP ---
Pre-Procedural Eval Section A Date of Service: 12/29/21 The patient is an INPATIENT: No Changes since office visit: Yes Patient answered all questions The History & Physical has been completed within 30 days and I have reviewed it.: Yes Section B Chief Complaint: post op Allergies: Allergies Allergy/AdvReac Type Severity Reaction Status Date / Time No Known Allergies Allergy Verified 12/16/21 13:27 Plan I have reviewed the history and physical and performed a pertinent physical examination on my patient. No changes have occurred unless specified.
[2021-12-29] MEDS: ceFAZolin Sodium/Dextrose,Iso 2 GM/50 ML PIGGYBACK IV (08:29)
[2021-12-29 09:58] LABS: Base Excess Bedside Calculated 1 mmol/L (-3-3); Glucose, i-STAT 142 mg/dL (60-115); HCO3 Bedside Calculated 28 mmol/L (22-26); Hematocrit Bedside 44 %PCV (42-52); Potassium Bedside 4.4 mmol/L (3.3-5.1); SO2 Bedside Calculated 97 %; Sodium Bedside 135 mmol/L (135-145); TCO2 Bedside 29 mmol/L (24-29); pCO2 Bedside 59 mmhg (35-48); pH Bedside 7.28 (7.35-7.45); pO2 Bedside 106 mmhg (83-108)
[2021-12-29 13:32] LABS: Base Excess Bedside Calculated -1 mmol/L (-3-3); Glucose, i-STAT 184 mg/dL (60-115); HCO3 Bedside Calculated 25 mmol/L (22-26); Hematocrit Bedside 41 %PCV (42-52); Hemoglobin Bedside 13.9 g/dL (14.0-18.0); Potassium Bedside 4.4 mmol/L (3.3-5.1); SO2 Bedside Calculated 100 %; Sodium Bedside 136 mmol/L (135-145); TCO2 Bedside 27 mmol/L (24-29); pCO2 Bedside 48 mmhg (35-48); pH Bedside 7.33 (7.35-7.45); pO2 Bedside 238 mmhg (83-108)
--- NOTE | 2021-12-29 16:05 | W.PM.OPN ---
Operative Note Operative Note Date of Service: 12/29/21 Narrative: Operative note by [facility] Preoperative diagnosis: Aortoiliac occlusive disease with severe activity limiting claudication Postoperative diagnosis: Same Procedure:1. Open aortobifemoral bypass 2. Thromboendarterectomy of aorta 3. Thromboendarterectomy of right common femoral artery 4. Thrombo endarterectomy of left common femoral artery 5. Embolectomy of left profundus fem 6. re-exploration of left groin 7. Thromboendarterectomy of left SFA and profundus femoris Surgeon:Corby Vences M.D. Delinquency Prevention Social Worker: Dr. Davis for part [address] Lentz for part 2 Anesthesia: General Specimens:3 Drains:0 Estimated blood loss: 700 mL with 225 given back as Cell Saver Indications: 71-year-old gentleman with severe activity limiting claudication. He was barely able to walk 2 minutes and he subsequently needed to crawl after at that. He subsequently underwent angiogram and CT scan which demonstrated aortoiliac occlusive disease. He now presents for open aortobifemoral bypass. patient has signed the informed consent after reviewing risks, complications, benefits, and alternatives previously discussed with the patient. The patient was given the opportunity to ask any additional questions or voice any concerns. All questions were answered to the patient's satisfaction. Procedure in detail: Patient was brought to the operating room prior to which a time-out was called for patient identification site verification. Abdomen and bilateral groins were prepped in standard surgical fashion. First we started with a longitudinal left common femoral cutdown. We were able to identify the common femoral profundus and SFA and isolate these with silastic loops. In a similar fashion we then turned our attention to the right side and we were able to open this as well. We then turned our attention to the abdomen. We made a midline incision from xiphoid to symphysis pubis. We went through the skin subcu fat fascia and we were able to enter the peritoneum plate area once we were into the peritoneum we noticed rather large omentum with some adhesions which had to be lysed. Once this was accomplished we then opened the retroperitoneum. We were able to identify the aorta and dissect all the way up to the level of the renals. All bleeding and lymphatics were controlled along the way with silk ties. Once this was accomplished we then created tunnels with a red rubber catheters for in a retroperitoneal fashion from the aorta to the common femorals. Once both sides were tunneled 5000 units of systemic heparin was administered. After 5 minutes of circulation time we turned our attention to the aorta. The aorta was then clamped. Once we clamped this we then created an arteriotomy with an 11 blade. This was opened further with a Schultz scissor. We encountered a fair amount of thrombus. This had to be evac UA did. A thrombo endarterectomy had to be performed. We had to extend this further up and we remotely endarterectomized up above the level of the renals with a right angle clamp. Once this was accomplished and we were able to clear this and flush with good flow. We then he used an albo graft 14x7x7. Once this was accomplished we trimmed the proximal portion and circumferentially anastomosed this to the aorta using a 3-0 Prolene suture. Prior to closure we flushed this area clear. We then flushed we then closed. Adequate hemostasis was achieved. We then flushed through the graft. Both limbs were brought through the tunnel and we brought this in a retroperitoneal fashion down into the common femorals. We then trimmed the grafts to the appropriate size using an angled cut with an 11 blade. Once this was done we then 1st identified the right common femoral artery and this was then clamped off. We did a local thromboendarterectomy there. This was near occlusive in the common femoral. We then circumferentially anastomosed using a 5 0 Prolene suture. Prior to closure this was flushed clear. Flow was reestablished into the right leg. We performed this in a similar fashion in the left leg. Again a local thrombo endarterectomy had to be for performed. We did not receive good flow through the profundus femorals. At this time using a 3. Laura we were able to evacuate thrombus and passed a Laura safely. Once this was all accomplished adequate hemostasis was achieved we anastomosed the baptiste of the graft in a circumferential manner once again with a 5 0 Prolene suture. Once this was all done adequate hemostasis was achieved. We then closed the abdomen with a looped PDS in a running fashion on the fascia. Superficial layer with 2-0 Polysorb. This and skin with rubin skin clips. We then closed both groins with multiple layers of 2-0 Polysorb superficial with 3-0 poly Sorb and finally skin with skin clips. Once this was all accomplished, we removed the drapes after sterile dressing was applied. We examined both legs. Right leg appeared warm with a good PT signal. Left leg was cool and did not have any signals. There was a clear temperature differential between the 2 legs. At this time we determined that we should re-explore the left groin. The patient was re-prepped and draped in a standard surgical fashion. He was never awoken from anesthesia. We then reopened the left groin through the prior incision. Re-explore this area. We once again clamped the proximal and distal areas from the common femoral profundus and SFA. We used 11 blade and removed the baptiste of the graft. Once this was opened it was clear that we did not have good flow through the profundus femorals. We went down further on the SFA with Schultz scissors and on to the profundus femorals with Schultz scissors. There is additional atherosclerotic disease that had to be endarterectomized in both locations. Once this was accomplished we then made a spatula did opening between the 2 using 7 0 Prolene sutures. We Re trimmed the baptiste of the graft to extend on down. The graft was then anastomosed using a 5 0 Prolene suture in a circumferential manner from the common femoral all the way down to the profundus femorals. Once this was a accomplished prior to closure was all flushed clear. Flow was reestablished. At this time we were able to establish an excellent Doppler signal in the SFA and profundus femorals. We then elected to close using a 2-0 Polysorb in the deep layer 3-0 Polysorb on the superficial layer and skin clips. At the end the case sponge needle instrument counts were correct x2. Patient tolerated the procedure well and was awoken and returned to recovery with stable vitals. Both feet were warm with motor and sensation intact. In was called and notified the events postprocedure. This note is constructed using voice recognition software. While every effort has been made to ensure accuracy, delivery tech errors may have been included. Thank you for allowing me to participate in the care of your patient. Yours sincerely, Corby Vences MD, FACS, R.P.V.I.
[2021-12-29 16:48] LABS: Basophils Percent Auto 0.1 % (0-2); Eosinophils Percent Auto 0.1 % (0-4); Hematocrit 49.1 % (42.0-52.0); Hemoglobin 15.8 g/dl (14.0-18.0); Imm Gran Abs Auto 0.07 X10*3/uL (0.00-0.03); Imm Gran Pct Auto 0.4 % (0.0-0.4); Lymphocytes Absolute Auto 0.5 X10*3/uL (1.2-4.9); Lymphocytes Percent Auto 2.9 % (20-40); MANUAL DIFF FLAG SCAN; Mean Corpuscular HGB Conc 32.2 g/dl (31.0-36.0); Mean Corpuscular Hemoglobin 31.2 pg (27.0-33.0); Neutrophils Absolute Auto 15.7 x10*3/uL (2.0-8.3); Neutrophils Percent Auto 90.5 % (45-73); Platelet Count 167 X10*3/uL (160-400); Red Blood Count 5.06 X10*6/uL (4.60-5.80); Red Cell Distribution Width 13.1 % (11.0-16.0); SCAN SMEAR FLAG 1; White Blood Count 17.4 X10*3/uL (4.8-10.8)
[2021-12-29] MEDS: HYDROmorphone HCl 0.5 MG/0.5 ML SYRINGE 0.25 MG IVPUSH ×2 (16:51→17:06)
[2021-12-29 17:02] LABS: Anion Gap 15 (12-20); Blood Urea Nitrogen 16 mg/dL (9-16); Calcium 8.1 mg/dL (8.4-10.2); Carbon Dioxide 22 mmol/L (22-29); Chloride 105 mmol/L (96-108); Creatinine Clr Calc Pharmacy 47.4; Estimated Glomerular Filt Rate 50; Glucose Random 191 mg/dL (60-115); Potassium 4.5 mmol/L (3.3-5.1); Sodium 137 mmol/L (135-145)
[2021-12-29 17:06] LABS: INTERNATIONAL NORM RATIO 1.1 (0.9-1.1); Prothrombin Time 12.2 SEC (9.9-13.0)
[2021-12-29 17:09] LABS: SLIDE REVIEW VERIFIED
[2021-12-29] MEDS: HYDROmorphone HCl 1 MG/ML SYRINGE IVPUSH (18:05)
[2021-12-29] MEDS: 0.9 % Sodium Chloride Flush 3 ML SYRINGE IVFLUSH (18:10)
--- NOTE | 2021-12-29 18:35 | P.HPCC_ITS ---
History of Present Illness Date of Service: 12/29/21 Attending physician on admission: Corby Vences Chief Complaint: Severe claudication 2? aortic occlusive disease. Mr. Clark is admitted to the ICU this afternoon after open aortobifemoral bypass for aortic occlusive dz. The patient is a 71-year-old gentleman with PMHx of smoking (50 pk years), COPD, back pain, and BPH.? He has no h/o DM.? He presented to Dr. Vences with severe activity-limiting claudication.? Angiogram and CT showed aortoiliac occlusive disease.? He presented today for elective for open aortobifemoral bypass. Preop pharmacological stress test showed no anginal symptoms, with a normotensive response to injection, with nondiagnostic EKG.? The patient reporte d fatigue and heaviness in his arms and legs that was treated with aminophylline, with resolution of symptoms.? The nuclear study showed no clear reversible defect suggestive of ischemia (i.e. likely normal perfusion).? EF was 64%. Preop echo showed normal LV systolic function with grade 1 diastolic dysfunction.? There was normal RV cavity size and function.? There was no si gnificant valvular disease, and RVSP was normal. Patient underwent aortobifemoral bypass under general endotracheal anesthesia.? The anesthetic course was unremarkable.? At operation, the aorta was endarterectomized above the level of the renalsm but them clamped below the yosi als.? At the distal end, both common femorals required thromboendarterectomy.? At conclusion of the operation, the left leg was cool and did not have any Doppler pulse signals.? The left groin was re-explored and endarterectomized further down.? At the conclusion, both feet were warm with intact motor and sensation.? The patient was extubated without incident and taken to the PACU, and then admitted to the ICU. Intra op fluids total 3 L of LR.? EBL was 700cc, with 225 cc returned by Cell [facility]. On my exam in the ICU, the patient was fully awake and appropriate, and complaining of severe sharp pain in the upper posterior aspect of his left butt cheek.? On examination of that area, there was an about 3 in diameter area of erythema that blanched easily and had no skin breakdown.? On the other but cheek, the area of erythema was only about 1 in.? Heart rate 88, sinus rhythm.? Blood pressure 154/80, respiratory rate 17, sat 99% on room air.? Temperature was 98 degrees.? There was no jugular venous distention.? Chest was clear with normal expiratory phase.? Heart rate and rhythm were regular, with normal- sounding S1 and S2, with no murmur or gallops.? The abdominal dressing is dry.? Bowel sounds are diminished but present.? Both groin dressings are dry.? The right leg all the way down to the tip of the foot is warm.? The left leg is warm and equal temperature all the way down to the top of the ankle at which point there is a sharp demarcation to be cooler temperature.? Both posterior tibial pulses are faint but continuously dopplerable.? Both dorsalis pedis pulses are faint and come and go by Doppler.? None of the four pulses are palpable.? The patient is able to move both feet.? Sensation in the left foot is equivalent to that in the right. POSTOP LABORATORY DATA drawn in the PACU:? White count 17.4.? Hemoglobin 15.8 (preop was 16.7).? BUN/creatinine was 16/1.4 (preop 14/1.1).? CPK was 1180. IMPRESSION: 71 yo M with long smoking hx and severe claudication.? S/P aortobifemoral b ypass with re-exploration required of the left profundus femoral. ?The left foot is cool, but he has pulses, movement, and sensation equivalent to the right.? Discussed all that with Dr. Vences.? We?ll follow clinically overnight. Also noted that he has acute kidney injury with a slight bump in his creatinine.? Also discussed with Dr. Vences.? We?ll follow his urine output overn ight and recheck renal indices again tonight. ?The CPK of 1180 is likely par for the course. ?I?ll recheck labs at 22:00 tonight.? If the CPK is significantly further elevated, we?ll start him on a bicarb drip. Not clear where his butt-cheek pain is coming from, but locally the area is benign.? He felt much better after Diluadid 1mg. [facility] Past Medical History Medical History (Updated 12/17/21 @ 13:20 by Paula Chavez RN) Arthritis CAD (coronary artery disease) COPD (chronic obstructive pulmonary disease) Elevated cholesterol History of back pain History of BPH On anticoagulant therapy PVD (peripheral vascular disease) Surgical History Surgical History (Updated 12/16/21 @ 12:34 by Paula Chavez RN) History of back surgery History of open reduction and internal fixation (ORIF) procedure Hx of colonoscopy Social History Social History Household Members: Spouse Housing: House Are you a primary emergency care attendant to a significant other at home: No Do you presently have visiting nurse or other home services: No Patient Tobacco Use Status: Former Tobacco user Quit Date: 2020 Tobacco use type: Cigarette Cigarette Packs Per Day: 1 Cigarettes Per Day: 15 Years Smoked: 50 Smoked in Last 30 Days: Yes e-Cigarette/Vaping Use: Former Use Patient Interested in Nicotine Replacement: No Patient Given Instructions on How to Stop Smoking: Yes Date Education Initiated: 12/17/21 Second Hand Smoke Exposure: No Use of substances other than those prescribed or required for medical reasons: Yes Substance Use Type: Marijuana Substance Use Frequency: Daily Last Used Substance: Days (ago) Last Used Substance Other:: patient reports last time smoking marijuana was on wednesday12/26/21 Currently Displaying Signs/Symptoms of Drug Intoxication Withdrawal: No Any prior treatment program specific to substance use: No Have you been hit, kicked, punched, or otherwise hurt by someone within the past year? If so, by whom?: No Do you feel safe in your current relationship?: Yes Is there a partner from a previous relationship who is making you feel unsafe now?: No Are you made to feel afraid or neglected: No Spiritual Healthcare Practices: none per patient Pentecostalism Healthcare Practices: none per patient Cultural Healthcare Practices: none per patient Are you DNR?: Yes Advance Directives: No Advance Directives Information Provided: Yes Advance Directives on File: No Do you have thoughts of harming others: None Do you have a plan to hurt others: No Plan Recently lost weight without trying: Yes How much weight loss: 2-13 pounds Eating poorly because of decreased appetite: Yes Nutrition screen score: 4 Nutrition Risks: No Nutritional Risk Poor oral hygiene: No Current occupational status: retired Meds Allergies Allergy/AdvReac Type Severity Reaction Status Date / Time No Known Allergies Allergy Verified 12/16/21 13:27 Active Medications: Current Medications Acetaminophen (Acetaminophen 325 Mg Tablet) 650 mg PO Q6H PRN PRN Reason: Pain, Mild (Pain Scale 1-3) Hydromorphone HCl (Hydromorphone Hcl 0.5 Mg/0.5 Ml Syringe) 0.5 mg IVPUSH Q1H PRN; Protocol PRN Reason: mild pain Lactated Ringer's (Lr) 1,000 mls @ 80 mls/hr IVCONT .[id number] [facility] Oxycodone HCl (Oxycodone Hcl Immed Release 5 Mg Tablet) 5 mg PO Q4H PRN PRN Reason: Pain, Moderate (Pain Scale 4-6 Sodium Chloride (0.9 % Sodium Chloride Flush 3 Ml Syringe) 3 ml IVFLUSH QSHIFT [facility] Last Admin: 12/29/21 18:10 Dose: 3 ml Documented by: Home Medications Medication Instructions Recorded Confirmed Last Taken Type aspirin 81 mg tablet,delayed 81 mg PO DAILY 12/02/21 12/16/21 Unknown History release (Adult Aspirin Regimen) ibuprofen 800 mg tablet 800 mg PO Q8H 12/02/21 12/16/21 Unknown History Physical Exam Vital Signs: Vital Signs: Last Vital Signs Temp 98 F 12/29/21 17:25 Pulse 91 12/29/21 17:58 Resp 18 12/29/21 17:58 BP 147/79 H 12/29/21 17:58 Pulse Ox 99 12/29/21 17:58 BMI result Body Mass Index 22.1 Results Labs CBC and Chem 7: 12/29/21 16:35 12/29/21 16:35 Labs: Laboratory Results - last 24 hr 12/17/21 12/29/21 12/29/21 13:41 06:17 09:53 POC Hgb (Calc) 15.0 POC Hct 44 MCV MCH MCHC RDW Plt Count MPV Immature Gran % (Auto) Neut % (Auto) Lymph % (Auto) [place] % (Auto) Eos % (Auto) Baso % (Auto) Lymph # (Auto) [place] # (Auto) Eos # (Auto) Baso # (Auto) Abs Immat Gran (auto) Absolute Neuts (auto) Absolute Nucleated RBC Nucleated RBC % (auto) Smear Tech's Comments PT INR POC Std Base Excess 1 POC O2 Sat (Calc) 97 POC ABG pO2 106 POC ABG Total CO2 29 POC Capillary pH 7.28 L POC Capillary pCO2 59 H POC Cap HCO3 (Calc) 28 H POC Sodium 135 POC Potassium 4.4 Anion Gap Estim Creat Clear Calc Estimated GFR POC Glucose 142 H Random Glucose Calcium COVID-19 ([facility]) Negative COVID-19 Clin Com See Note Blood Type B Positive Antibody Screen NEGATIVE Crossmatch See Detail 12/29/21 12/29/21 12/29/21 13:27 16:35 16:35 POC Hgb (Calc) 13.9 L POC Hct 41 L MCV 97.0 MCH 31.2 MCHC 32.2 RDW 13.1 Plt Count 167 D MPV 8.0 L Immature Gran % (Auto) 0.4 Neut % (Auto) 90.5 H Lymph % (Auto) 2.9 L [place] % (Auto) 6.0 Eos % (Auto) 0.1 Baso % (Auto) 0.1 Lymph # (Auto) 0.5 L [place] # (Auto) 1.0 Eos # (Auto) 0.0 Baso # (Auto) 0.0 Abs Immat Gran (auto) 0.07 H Absolute Neuts (auto) 15.7 H Absolute Nucleated RBC 0.000 Nucleated RBC % (auto) 0.0 Smear Tech's Comments VERIFIED PT INR POC Std Base Excess -1 POC O2 Sat (Calc) 100 POC ABG pO2 238 H POC ABG Total CO2 27 POC Capillary pH 7.33 L POC Capillary pCO2 48 POC Cap HCO3 (Calc) 25 POC Sodium 136 POC Potassium 4.4 Anion Gap 15 Estim Creat Clear Calc 47.4 Estimated GFR 50 POC Glucose 184 H Random Glucose 191 H D Calcium 8.1 L D COVID-19 ([facility]) COVID-19 Clin Com Blood Type Antibody Screen Crossmatch 12/29/21 16:35 POC Hgb (Calc) POC Hct MCV MCH MCHC RDW Plt Count MPV Immature Gran % (Auto) Neut % (Auto) Lymph % (Auto) [place] % (Auto) Eos % (Auto) Baso % (Auto) Lymph # (Auto) [place] # (Auto) Eos # (Auto) Baso # (Auto) Abs Immat Gran (auto) Absolute Neuts (auto) Absolute Nucleated RBC Nucleated RBC % (auto) Smear Tech's Comments PT 12.2 INR 1.1 POC Std Base Excess POC O2 Sat (Calc) POC ABG pO2 POC ABG Total CO2 POC Capillary pH POC Capillary pCO2 POC Cap HCO3 (Calc) POC Sodium POC Potassium Anion Gap Estim Creat Clear Calc Estimated GFR POC Glucose Random Glucose Calcium COVID-19 ([facility]) COVID-19 Clin Com Blood Type Antibody Screen Crossmatch
[2021-12-29] MEDS: Lactated Ringers 1,000 ML 80 ML IVCONT (18:37)
--- NOTE | 2021-12-29 18:42 | PC.NURSE ---
Patient arrived to unit from PACU via bed at 1745. Patient drowsy but arousable to name. Patient c/o 05/13 patient to right buttocks. Buttocks red, blanchable - barrier cream applied and pillow applied under right hip - okay per Dr Sher. Dilaudid 1mg IVP x1 dose ordered and administered at 1805. Gabriela zeroed and correlated with manual BP. SBP trending 140-160's - Dr Sher aware and notified Dr Vences. SBP to maintain <[address] Sher. SR HR 80's, no ectopy. Midline dressing and bilateral groin dressing C/D/I. Pedal and dorsalis tibial pulses faint with Doppler - areas marked. Left foot pink, cold to touch - MD aware. LR at 80cc/hr ordered and administering. HOB at 30 degrees.
[2021-12-29 22:15] LABS: Lactic Acid 5.5 mmol/L (0.5-2.0)
[2021-12-29 22:30] LABS: Anion Gap 16 (12-20); Blood Urea Nitrogen 17 mg/dL (9-16); Calcium 8.4 mg/dL (8.4-10.2); Carbon Dioxide 22 mmol/L (22-29); Chloride 104 mmol/L (96-108); Creatinine Clr Calc Pharmacy 44.9; Estimated Glomerular Filt Rate 46; Glucose Random 179 mg/dL (60-115); Magnesium 1.9 mg/dL (1.6-2.6); Phosphorus 3.3 mg/dL (2.7-4.5); Potassium 4.9 mmol/L (3.3-5.1); Sodium 137 mmol/L (135-145)
[2021-12-29 23:02] LABS: Cancel Lactic Acid Canceled
[2021-12-29 23:03] LABS: Reflex Lactate? No addnl Lactic Acid
[2021-12-29] MEDS: Lactated Ringers 1,000 ML 999 ML IV (23:05)
[2021-12-29 23:33] LABS: ~Lactic Acid-LAB USE ONLY 5.5 mmol/L (0.5-2.0)
[2021-12-30] VITALS (30 sets, daily range): BP systolic 109–172; BP diastolic 35–77; PULSE 78–99; RESP 14–27; TEMP 36.4–37.1; O2SAT 91–97; BMI 26.1
[2021-12-30 00:13] LABS: Cancel Lactic Acid Canceled
[2021-12-30 02:35] LABS: Alanine Aminotransferase 24 U/L (0-40); Alkaline Phosphatase 44 U/L (39-117); Anion Gap 13 (12-20); Aspartate Amino Transferase 100 U/L (5-37); Bilirubin Total 0.3 mg/dL (0.0-1.0); Blood Urea Nitrogen 17 mg/dL (9-16); Calcium 8.2 mg/dL (8.4-10.2); Carbon Dioxide 25 mmol/L (22-29); Chloride 103 mmol/L (96-108); Creatinine Clr Calc Pharmacy 51.8; Estimated Glomerular Filt Rate 55; Glucose Random 122 mg/dL (60-115); Potassium 4.9 mmol/L (3.3-5.1); Sodium 136 mmol/L (135-145); Total Protein 5.5 g/dL (6.5-8.0)
[2021-12-30 02:36] LABS: Lactic Acid 3.7 mmol/L (0.5-2.0)
[2021-12-30] MEDS: HYDROmorphone HCl 0.5 MG/0.5 ML SYRINGE IVPUSH ×8 (03:47→23:23)
[2021-12-30] MEDS: Lactated Ringers 1,000 ML 80 ML IVCONT ×2 (05:44→17:47)
[2021-12-30 06:21] LABS: Hematocrit 44.3 % (42.0-52.0); Hemoglobin 14.4 g/dl (14.0-18.0); Mean Corpuscular HGB Conc 32.5 g/dl (31.0-36.0); Mean Corpuscular Hemoglobin 31.3 pg (27.0-33.0); Mean Corpuscular Volume 96.3 fL (80.0-98.0); Mean Platelet Volume 8.4 fL (9.4-12.4); Platelet Count 170 X10*3/uL (160-400); Red Cell Distribution Width 13.1 % (11.0-16.0); White Blood Count 14.2 X10*3/uL (4.8-10.8)
[2021-12-30 06:22] LABS: Lactic Acid 1.9 mmol/L (0.5-2.0)
[2021-12-30 06:36] LABS: Anion Gap 12 (12-20); Blood Urea Nitrogen 17 mg/dL (9-16); Carbon Dioxide 26 mmol/L (22-29); Chloride 103 mmol/L (96-108); Creatinine Clr Calc Pharmacy 60.8; Estimated Glomerular Filt Rate > 60; Glucose Random 117 mg/dL (60-115); Potassium 4.9 mmol/L (3.3-5.1); Sodium 136 mmol/L (135-145)
[2021-12-30] MEDS: 0.9 % Sodium Chloride Flush 3 ML SYRINGE IVFLUSH ×3 (07:21→23:26)
--- NOTE | 2021-12-30 09:09 | P.PNVS_ITS ---
Subjective Subjective Date of Service: 12/30/21 Patient reports: no new complaints and feels better Interval history: Patient is postop day 1 status post aortobifemoral bypass with redo left femoral anastomosis. Patient is doing extremely well this morning. He has adequate pain control. He is resting fairly comfortably in bed. He reports both feet feel warm. He has not passed any flatus has not had any bowel movements, but reports that he is fairly comfortable Physical Exam Vital Signs: Vital Signs: Last Vital Signs Temp 98.7 F 12/30/21 08:00 Pulse 83 12/30/21 09:00 Resp 17 12/30/21 09:00 BP 131/41 L 12/30/21 09:00 Pulse Ox 93 12/30/21 09:00 BMI result Body Mass Index 26.1 Const: General: cooperative, healthy appearing and no acute distress Orientation/consciousness: oriented to person, oriented to place and oriented to time HEENT: Head: Yes normal to inspection Neck: Carotids: no bruits Chest: Chest palpation & inspection: normal inspection of the chest Resp: Effort & Inspection: normal respiratory effort and able to speak in complete sentences Auscultation: clear to auscultation bilaterally Cardio: Rate: regular rate Heart sounds: S1 normal heart sound present and S2 normal heart sound present GI: Inspection: Yes normal to inspection Skin: Other: Incision line dressings clean dry intact. Left posterior gluteal no hematoma or injuries noted General skin exam: no rashes or lesions noted Wounds: no wounds Neuro: General: oriented to person, oriented to place, oriented to time and CN's II-XI intact bilaterally Extrem: General: Yes normal to inspection, Yes full ROM and Yes no clubbing, cyanosis or edema Psych: Appearance: grossly normal and well kempt Speech and movement: Normal speech and movement present Affect: normal affect Progress Note: A&P Assessment and plan (1) Aortoiliac occlusive disease: Status: Acute Assessment and Plan: Patient is doing relatively well postop day 1 status post aortobifemoral bypass. He has been started on subQ heparin and lower extremity compression will be taken off. We will maintain NPO status for now. I would like to maintain the A-line and in bed status for 1 additional day. Labs appear to have improved since yesterday and renal function appears to be normal. I had an extensive discussion with the patient regarding the operation and the underlying status of his disease. Continue ICU level care. Fall Risk Details Current Medications: Current Medications Acetaminophen (Acetaminophen 325 Mg Tablet) 650 mg PO Q6H PRN PRN Reason: Pain, Mild (Pain Scale 1-3) Heparin Sodium (Porcine) (Heparin Sodium,Porcine 5,000 Unit/Ml Vial) 5,000 unit SUBCUT Q8H [facility] Hydromorphone HCl (Hydromorphone Hcl 0.5 Mg/0.5 Ml Syringe) 0.5 mg IVPUSH Q1H PRN; Protocol PRN Reason: mild pain Last Admin: 12/30/21 05:43 Dose: 0.5 mg Documented by: Hydromorphone HCl (Hydromorphone Hcl 2 Mg Tablet) 1 mg PO Q1H PRN PRN Reason: mod-severe pain Lactated Ringer's (Lr) 1,000 mls @ 80 mls/hr IVCONT .[id number] [facility] Last Admin: 12/30/21 05:44 Dose: 80 mls/hr Documented by: Oxycodone HCl (Oxycodone Hcl Immed Release 5 Mg Tablet) 5 mg PO Q4H PRN PRN Reason: Pain, Moderate (Pain Scale 4-6 Sodium Chloride (0.9 % Sodium Chloride Flush 3 Ml Syringe) 3 ml IVFLUSH QSHIFT [facility] Last Admin: 12/30/21 07:21 Dose: 3 ml Documented by: Time Spent With Patient Time: Total time spent is greater than 50% in coordination of care (as documented) at patient's floor/unit and/or counseling patient: Procedures Date of Service Date of Service: 12/30/21 Quality Stroke Does the patient have a stroke diagnosis?: No VTE Prior VTE?: No VTE Risk Level:: Surgical - high VTE Device Contraindication: N/A - Device Ordered VTE Drug Contraindication: N/A - Med Ordered
--- NOTE | 2021-12-30 09:23 | HO.POSTANES ---
Post Anesthesia Evaluation Post Anesthesia Evaluation Vital Signs: Vital Signs Temp Pulse Resp BP Pulse Ox 12/30/21 09:00 83 17 131/41 L 93 12/30/21 08:00 98.7 F 87 18 118/35 L 92 12/30/21 07:00 83 15 122/36 L 94 12/30/21 05:58 98.5 F 87 15 109/36 L 92 12/30/21 05:43 17 12/30/21 04:57 87 14 120/35 L 92 12/30/21 03:57 97 19 129/67 97 12/30/21 03:47 14 12/30/21 02:54 91 15 137/39 L 94 12/30/21 02:00 97 16 164/53 H 91 L 12/30/21 01:00 85 14 127/71 96 12/30/21 00:00 86 14 157/49 H 97 12/29/21 23:00 83 15 149/48 H 97 12/29/21 22:00 84 20 106/76 100 Anesthesia: General Endotracheal-GETA Mental Status: Awake Pain Control: Satisfactory Nausea/Vomiting: None Hydration: Adequate Anesthesia-Related Issues: No Anes. Related Issues
[2021-12-30] MEDS: Heparin Sodium,Porcine 5,000 UNIT/ML VIAL 5000 UNIT SUBCUT ×2 (09:58→17:27)
--- NOTE | 2021-12-30 10:54 | MHC.CM.PN ---
Met with pt to discuss d/c planning: pt resides with spouse, is independent with all care needs and does not have any services. He states his spouse will transport to home: COVID vax x2 no booster: HCP requested: CM to follow: no additional needs anticipated
--- NOTE | 2021-12-30 11:15 | PM.EVENT ---
Event Note Date of Service: 12/30/21 Event Note: RE: PICC line insertion for Mr. Clark. The patient currently has a femoral dialysis catheter in place that is being used for IV access bec he has no accessible veins. Both of his groins have superficial fungal infection. He has a long documented history of extremely difficult phlebotomies and IV access. He needs a PICC line MARISOL so that the femoral catheter can be removed MARISOL. Blood cultures are negative at 41 hours and are not expected to turn positive. The patient has no suspected infection and is not on abx. In my opinion, placement of a PICC line today is medically justified and appropriate.
--- NOTE | 2021-12-30 12:33 | P.PNCC_ITS ---
Subjective Subjective Date of Service: 12/30/21 Interval History: Mr. Clark was admitted to the ICU yesterday after open aortobifemoral bypass for aortic occlusive dz. The patient is a 71-year-old gentleman with PMHx of smoking (50 pk years), COPD, back pain, and BPH.? He has no h/o DM.? He presented to Dr. Vences with severe activity-limiting claudication.? Angiogram and CT showed aortoiliac occlusive disease. The patient underwent aortobifemoral bypass yesterday under general endotracheal anesthesia.? The anesthetic course was unremarkable.? At conclusion of the operation, the left leg was cool and did not have Doppler pulse signals.? The left groin was re-explored and endarterectomized further down.? At the conclusion, both feet were warm with intact motor and sensation.? The patient was extubated without incident and taken to the PACU, and then admitted to the ICU. Initial post op labs were notable for a bump in his creat to 1.4 from 1.1 preop.? Also had a CPK bump to 1100.? His left foot was cooler than the right, but pulses were symmetrical.? Later at night lactate was 5, and the CPK edu to 6000.? He was given additional fluids overnight. This morning his exam and labs are much improved. ?Heart rate is 77, blood pressure 135/43.? Breathing easy on room air with sat 97%. ?T-max today 100.0 degrees. ?Both legs are warm all the way down the toes.? Motor and sensory fxn normal.? All four pulses are much louder on the Doppler and fully continuous. Of note, the patient tells me that the pain he has in his left butt cheek is the claudication pain that he?s had that prevented him from walking.? He says that he still feels it but it?s better now. LABORATORY DATA:? Below.? Notably, white count down to 14,? BUN/creatinine down to 17/1.1, lactate down to 1.9, CPK down to 5888. IMPRESSION: 1. 71 yo M with long smoking hx and severe claudication.? S/P aortobifemoral bypass with re-exploration required of the left profundus femoral.? Perfusion of both legs and feet much improved compared with last night. 2. CHRISSY.? Resolved. 3. Lactic acidosis.? Resolved 4. CPK elevation.? Crested and trending down. 5. Low grade temp and WBC.? Start incentive spirometry. Critical Care Time (minutes): 0 Physical Exam Vital Signs: Vital Signs: Last Vital Signs Temp 98.7 F 12/30/21 12:00 Pulse 78 12/30/21 12:00 Resp 19 12/30/21 12:00 BP 136/43 L 12/30/21 12:00 Pulse Ox 95 12/30/21 12:00 BMI result Body Mass Index 26.1 Objective Data Labs CBC & Chem 7: 12/30/21 05:06 12/30/21 05:06 Labs: Laboratory Results - last 24 hr 12/17/21 12/29/21 12/29/21 13:41 13:27 16:35 WBC RBC Hgb POC Hgb (Calc) 13.9 L Hct POC Hct 41 L MCV MCH MCHC RDW Plt Count MPV Immature Gran % (Auto) Neut % (Auto) Lymph % (Auto) [place] % (Auto) Eos % (Auto) Baso % (Auto) Lymph # (Auto) [place] # (Auto) Eos # (Auto) Baso # (Auto) Abs Immat Gran (auto) Absolute Neuts (auto) Absolute Nucleated RBC Nucleated RBC % (auto) Smear Tech's Comments PT INR POC Std Base Excess -1 POC O2 Sat (Calc) 100 POC ABG pO2 238 H POC ABG Total CO2 27 POC Capillary pH 7.33 L POC Capillary pCO2 48 POC Cap HCO3 (Calc) 25 POC Sodium 136 Sodium 137 POC Potassium 4.4 Potassium 4.5 Chloride 105 Carbon Dioxide 22 Anion Gap 15 BUN 16 Creatinine 1.41 H Estim Creat Clear Calc 47.4 Estimated GFR 50 POC Glucose 184 H Random Glucose 191 H D Lactic Acid Lactic Acid F/U @ 2Hr Calcium 8.1 L D Phosphorus Magnesium Total Bilirubin AST ALT Alkaline Phosphatase Total Creatine Kinase 1180 H Total Protein Albumin Crossmatch See Detail 12/29/21 12/29/21 12/29/21 16:35 16:35 21:55 WBC 17.4 H RBC 5.06 Hgb 15.8 POC Hgb (Calc) Hct 49.1 POC Hct MCV 97.0 MCH 31.2 MCHC 32.2 RDW 13.1 Plt Count 167 D MPV 8.0 L Immature Gran % (Auto) 0.4 Neut % (Auto) 90.5 H Lymph % (Auto) 2.9 L [place] % (Auto) 6.0 Eos % (Auto) 0.1 Baso % (Auto) 0.1 Lymph # (Auto) 0.5 L [place] # (Auto) 1.0 Eos # (Auto) 0.0 Baso # (Auto) 0.0 Abs Immat Gran (auto) 0.07 H Absolute Neuts (auto) 15.7 H Absolute Nucleated RBC 0.000 Nucleated RBC % (auto) 0.0 Smear Tech's Comments VERIFIED PT 12.2 INR 1.1 POC Std Base Excess POC O2 Sat (Calc) POC ABG pO2 POC ABG Total CO2 POC Capillary pH POC Capillary pCO2 POC Cap HCO3 (Calc) POC Sodium Sodium 137 POC Potassium Potassium 4.9 Chloride 104 Carbon Dioxide 22 Anion Gap 16 BUN 17 H Creatinine 1.49 H Estim Creat Clear Calc 44.9 Estimated GFR 46 POC Glucose Random Glucose 179 H Lactic Acid Lactic Acid F/U @ 2Hr Calcium 8.4 Phosphorus 3.3 Magnesium 1.9 Total Bilirubin AST ALT Alkaline Phosphatase Total Creatine Kinase 6466 H D Total Protein Albumin Crossmatch 12/29/21 12/29/21 12/30/21 21:55 23:15 01:59 WBC RBC Hgb POC Hgb (Calc) Hct POC Hct MCV MCH MCHC RDW Plt Count MPV Immature Gran % (Auto) Neut % (Auto) Lymph % (Auto) [place] % (Auto) Eos % (Auto) Baso % (Auto) Lymph # (Auto) [place] # (Auto) Eos # (Auto) Baso # (Auto) Abs Immat Gran (auto) Absolute Neuts (auto) Absolute Nucleated RBC Nucleated RBC % (auto) Smear Tech's Comments PT INR POC Std Base Excess POC O2 Sat (Calc) POC ABG pO2 POC ABG Total CO2 POC Capillary pH POC Capillary pCO2 POC Cap HCO3 (Calc) POC Sodium Sodium 136 POC Potassium Potassium 4.9 Chloride 103 Carbon Dioxide 25 Anion Gap 13 BUN 17 H Creatinine 1.29 Estim Creat Clear Calc 51.8 Estimated GFR 55 POC Glucose Random Glucose 122 H Lactic Acid 5.5 H* Lactic Acid F/U @ 2Hr 5.5 H* Calcium 8.2 L Phosphorus Magnesium Total Bilirubin 0.3 AST 100 H ALT 24 Alkaline Phosphatase 44 D Total Creatine Kinase 6586 H Total Protein 5.5 L Albumin 3.0 L D Crossmatch 12/30/21 12/30/21 12/30/21 02:08 05:06 05:06 WBC 14.2 H RBC 4.60 Hgb 14.4 POC Hgb (Calc) Hct 44.3 POC Hct MCV 96.3 MCH 31.3 MCHC 32.5 RDW 13.1 Plt Count 170 MPV 8.4 L Immature Gran % (Auto) Neut % (Auto) Lymph % (Auto) [place] % (Auto) Eos % (Auto) Baso % (Auto) Lymph # (Auto) [place] # (Auto) Eos # (Auto) Baso # (Auto) Abs Immat Gran (auto) Absolute Neuts (auto) Absolute Nucleated RBC 0.000 Nucleated RBC % (auto) 0.0 Smear Tech's Comments PT INR POC Std Base Excess POC O2 Sat (Calc) POC ABG pO2 POC ABG Total CO2 POC Capillary pH POC Capillary pCO2 POC Cap HCO3 (Calc) POC Sodium Sodium 136 POC Potassium Potassium 4.9 Chloride 103 Carbon Dioxide 26 Anion Gap 12 BUN 17 H Creatinine 1.15 Estim Creat Clear Calc 60.8 Estimated GFR > 60 POC Glucose Random Glucose 117 H Lactic Acid 3.7 H* Lactic Acid F/U @ 2Hr Calcium 8.0 L Phosphorus Magnesium Total Bilirubin AST ALT Alkaline Phosphatase Total Creatine Kinase 5888 H Total Protein Albumin Crossmatch 12/30/21 05:06 WBC RBC Hgb POC Hgb (Calc) Hct POC Hct MCV MCH MCHC RDW Plt Count MPV Immature Gran % (Auto) Neut % (Auto) Lymph % (Auto) [place] % (Auto) Eos % (Auto) Baso % (Auto) Lymph # (Auto) [place] # (Auto) Eos # (Auto) Baso # (Auto) Abs Immat Gran (auto) Absolute Neuts (auto) Absolute Nucleated RBC Nucleated RBC % (auto) Smear Tech's Comments PT INR POC Std Base Excess POC O2 Sat (Calc) POC ABG pO2 POC ABG Total CO2 POC Capillary pH POC Capillary pCO2 POC Cap HCO3 (Calc) POC Sodium Sodium POC Potassium Potassium Chloride Carbon Dioxide Anion Gap BUN Creatinine Estim Creat Clear Calc Estimated GFR POC Glucose Random Glucose Lactic Acid 1.9 Lactic Acid F/U @ 2Hr Calcium Phosphorus Magnesium Total Bilirubin AST ALT Alkaline Phosphatase Total Creatine Kinase Total Protein Albumin Crossmatch Quality Stroke Does the patient have a stroke diagnosis?: No VTE Prior VTE?: No VTE Risk Level:: Surgical - high VTE Device Contraindication: N/A - Device Ordered VTE Drug Contraindication: N/A - Med Ordered
[2021-12-30 13:38] LABS: Magnesium 1.7 mg/dL (1.6-2.6)
[2021-12-31] VITALS (18 sets, daily range): BP systolic 90–171; BP diastolic 39–80; PULSE 85–103; RESP 15–26; TEMP 36.9–37.7; O2SAT 89–95; BMI 25.4
[2021-12-31] MEDS: Heparin Sodium,Porcine 5,000 UNIT/ML VIAL 5000 UNIT SUBCUT ×3 (01:14→16:40)
[2021-12-31] MEDS: HYDROmorphone HCl 0.5 MG/0.5 ML SYRINGE IVPUSH ×2 (03:40→08:05)
[2021-12-31 05:42] LABS: Hematocrit 39.1 % (42.0-52.0); Hemoglobin 13.1 g/dl (14.0-18.0); Mean Corpuscular HGB Conc 33.5 g/dl (31.0-36.0); Mean Corpuscular Hemoglobin 31.7 pg (27.0-33.0); Mean Corpuscular Volume 94.7 fL (80.0-98.0); Mean Platelet Volume 8.7 fL (9.4-12.4); Platelet Count 157 X10*3/uL (160-400); Red Blood Count 4.13 X10*6/uL (4.60-5.80); Red Cell Distribution Width 13.2 % (11.0-16.0); White Blood Count 12.7 X10*3/uL (4.8-10.8)
[2021-12-31] MEDS: Lactated Ringers 1,000 ML 80 ML IVCONT ×2 (05:46→18:37)
[2021-12-31 06:09] LABS: Anion Gap 11 (12-20); Blood Urea Nitrogen 20 mg/dL (9-16); Carbon Dioxide 25 mmol/L (22-29); Chloride 103 mmol/L (96-108); Creatinine Clr Calc Pharmacy 65.3; Estimated Glomerular Filt Rate > 60; Glucose Random 97 mg/dL (60-115); Magnesium 1.9 mg/dL (1.6-2.6); Phosphorus 3.1 mg/dL (2.7-4.5); Potassium 4.4 mmol/L (3.3-5.1); Sodium 135 mmol/L (135-145)
[2021-12-31] MEDS: Furosemide 20 MG/2 ML VIAL 10 MG IVPUSH (08:06)
[2021-12-31] MEDS: Aspirin 81 MG TAB.CHEW PO (08:06)
[2021-12-31] MEDS: 0.9 % Sodium Chloride Flush 3 ML SYRINGE IVFLUSH ×2 (08:07→21:05)
--- NOTE | 2021-12-31 08:26 | PC.NURSE ---
Addendum entered by Anna Jackson RN 12/31/21 16:48: NURSING LABORER DEMOLITION BROUGHT PATIENT TO NEW ROOM. AWAITING CALL BACK FROM RECEIVING RN. PATIENT HAS NOT YET VOIDED SINCE FAJARDO WAS REMOVED AT 1155. WILL CONTINUE TO MONITOR. Addendum entered by Anna Jackson RN 12/31/21 12:13: FAJARDO REMOVED PER SURGEON REQUEST. DTV AT 1999. WILL CONTINUE TO MONITOR. Original Note: EDGAR REMOVED PER VERBAL SURGEON ORDER. OCCULSIVE DRESSING APPLIED. WILL CONTINUE TO MONITOR.
--- NOTE | 2021-12-31 10:11 | HO.VASCPN ---
Subjective Subjective Date of Service: 12/31/21 Patient reports: no new complaints and feels better Interval history: Patient seen and examined. Patient is postop day 2 status post open aortobifem. He reports that the pain is well controlled. He has no interval issues. At the current time he does note that his abdomen is mildly distended. He has not passed any flatus or has not had a bowel movement. He remains NPO. Physical Exam Vital Signs: Vital Signs: Last Vital Signs Temp 98.6 F 12/31/21 08:00 Pulse 88 12/31/21 09:00 Resp 18 12/31/21 09:00 BP 136/68 12/31/21 09:00 Pulse Ox 90 L 12/31/21 09:00 BMI result Body Mass Index 25.4 Const: General: cooperative, healthy appearing and no acute distress Orientation/consciousness: oriented to person, oriented to place and oriented to time HEENT: Head: Yes normal to inspection Neck: Carotids: no bruits Chest: Chest palpation & inspection: normal inspection of the chest Resp: Effort & Inspection: normal respiratory effort and able to speak in complete sentences Auscultation: clear to auscultation bilaterally Cardio: Rate: regular rate Heart sounds: S1 normal heart sound present and S2 normal heart sound present Peripheral pulses: dorsalis pedis present (Bilateral DP signals.) GI: Inspection: Yes normal to inspection Skin: Other: Abdomen and groin incision dressings are clean dry intact. Abdominal binder is intact. General skin exam: no rashes or lesions noted Wounds: no wounds Neuro: General: oriented to person, oriented to place, oriented to time and CN's II-XI intact bilaterally Extrem: Other: Bilateral feet are warm with good motor and sensation. General: Yes normal to inspection, Yes full ROM and Yes no clubbing, cyanosis or edema Psych: Appearance: grossly normal and well kempt Speech and movement: Normal speech and movement present Affect: normal affect Progress Note: A&P Assessment and plan (1) Aortoiliac occlusive disease: Status: Acute Plan In short patient is doing excellent status post aortobifem bypass. We will remove A-line and Erickson. Around of Lasix will be administered. He can be out of bed to chair. Stable from my perspective for transfer up to intermediate care unit. He continues to have a postoperative ileus. Some of this may be narcotic related. Will start diet as soon as he begins bowel function. He is on subQ heparin for DVT prophylaxis. We restarted his aspirin as well. Once again he is stable [place] [facility] [place] will have the hospitalist team consult on his care. Fall Risk Details Current Medications: Current Medications Acetaminophen (Acetaminophen 325 Mg Tablet) 650 mg PO Q6H PRN PRN Reason: Pain, Mild (Pain Scale 1-3) Aspirin (Aspirin 81 Mg Tab.Chew) 81 mg PO DAILY [facility] Last Admin: 12/31/21 08:06 Dose: 81 mg Documented by: Heparin Sodium (Porcine) (Heparin Sodium,Porcine 5,000 Unit/Ml Vial) 5,000 unit SUBCUT Q8H [facility] Last Admin: 12/31/21 08:06 Dose: 5,000 unit Documented by: Hydromorphone HCl (Hydromorphone Hcl 0.5 Mg/0.5 Ml Syringe) 0.5 mg IVPUSH Q1H PRN; Protocol PRN Reason: mild pain Last Admin: 12/31/21 08:05 Dose: 0.5 mg Documented by: Hydromorphone HCl (Hydromorphone Hcl 2 Mg Tablet) 1 mg PO Q1H PRN PRN Reason: mod-severe pain Lactated Ringer's (Lr) 1,000 mls @ 80 mls/hr IVCONT .[id number] [facility] Last Admin: 12/31/21 05:46 Dose: 80 mls/hr Documented by: Oxycodone HCl (Oxycodone Hcl Immed Release 5 Mg Tablet) 5 mg PO Q4H PRN PRN Reason: Pain, Moderate (Pain Scale 4-6 Sodium Chloride (0.9 % Sodium Chloride Flush 3 Ml Syringe) 3 ml IVFLUSH QSHIFT [facility] Last Admin: 12/31/21 08:07 Dose: 3 ml Documented by: Time Spent With Patient Time: Total time spent is greater than 50% in coordination of care (as documented) at patient's floor/unit and/or counseling patient: Procedures Date of Service Date of Service: 12/31/21 Quality Stroke Does the patient have a stroke diagnosis?: No VTE Prior VTE?: No VTE Risk Level:: Surgical - high VTE Device Contraindication: N/A - Device Ordered VTE Drug Contraindication: N/A - Med Ordered
[2021-12-31] MEDS: oxyCODONE HCl Immed Release 5 MG TABLET PO ×2 (12:17→18:11)
--- NOTE | 2021-12-31 15:29 | MHC.CM.PN ---
Pt remains in ICU: tolerating care and being closely followed by vascular. No changes to original d/c plan of returning to home without services. CM to reassess on 01/01 in anticipation of d/c to home.
[2022-01-01] VITALS (7 sets, daily range): BP systolic 127–158; BP diastolic 67–83; PULSE 80–93; RESP 17–19; TEMP 36.4–37.6; O2SAT 93–95; BMI 23.3
[2022-01-01] MEDS: Heparin Sodium,Porcine 5,000 UNIT/ML VIAL 5000 UNIT SUBCUT ×3 (00:57→18:08)
[2022-01-01] MEDS: Lactated Ringers 1,000 ML 80 ML IVCONT (08:35)
[2022-01-01] MEDS: Aspirin 81 MG TAB.CHEW PO (08:36)
[2022-01-01] MEDS: oxyCODONE HCl Immed Release 5 MG TABLET PO (08:39)
--- NOTE | 2022-01-01 10:04 | HO.VASCPN ---
Subjective Subjective Date of Service: 01/01/22 Patient reports: no new complaints and feels better Interval history: Very pleasant 71-year-old gentleman status post aortobifem. He is doing extremely well. Pain appears to be better controlled. He was transferred from the unit up to the regular floor today. Of note he has no nausea and vomiting. He is hungry this morning. He is passing flatus. No bowel movement as of yet. Physical Exam Vital Signs: Vital Signs: Last Vital Signs Temp 99.4 F 01/01/22 07:38 Pulse 81 01/01/22 07:38 Resp 17 01/01/22 07:38 BP 146/67 H 01/01/22 07:38 Pulse Ox 93 01/01/22 07:38 BMI result Body Mass Index 23.3 Const: General: cooperative, healthy appearing and no acute distress Orientation/consciousness: oriented to person, oriented to place and oriented to time HEENT: Head: Yes normal to inspection Neck: Carotids: no bruits Chest: Chest palpation & inspection: normal inspection of the chest Resp: Effort & Inspection: normal respiratory effort and able to speak in complete sentences Auscultation: clear to auscultation bilaterally Cardio: Rate: regular rate Heart sounds: S1 normal heart sound present and S2 normal heart sound present GI: Inspection: Yes normal to inspection Skin: Other: Incisions well healing General skin exam: no rashes or lesions noted Wounds: no wounds Neuro: General: oriented to person, oriented to place, oriented to time and CN's II-XI intact bilaterally Extrem: General: Yes normal to inspection, Yes full ROM and Yes no clubbing, cyanosis or edema Psych: Appearance: grossly normal and well kempt Speech and movement: Normal speech and movement present Affect: normal affect Progress Note: A&P Assessment and plan (1) Aortoiliac occlusive disease: Status: Acute Assessment and Plan: Patient doing so well status post aortobifem. We will stop advanced him to a full liquid diet. In addition I would like him to be more ambulatory. Await resolution of postoperative ileus. Will assess his overall status within the next day or to as to whether he can return home or may require rehab. Continue intermediate level of care Fall Risk Details Current Medications: Current Medications Acetaminophen (Acetaminophen 325 Mg Tablet) 650 mg PO Q6H PRN PRN Reason: Pain, Mild (Pain Scale 1-3) Aspirin (Aspirin 81 Mg Tab.Chew) 81 mg PO DAILY [facility] Last Admin: 01/01/22 08:36 Dose: 81 mg Documented by: Heparin Sodium (Porcine) (Heparin Sodium,Porcine 5,000 Unit/Ml Vial) 5,000 unit SUBCUT Q8H [facility] Last Admin: 01/01/22 08:36 Dose: 5,000 unit Documented by: Hydromorphone HCl (Hydromorphone Hcl 0.5 Mg/0.5 Ml Syringe) 0.5 mg IVPUSH Q1H PRN; Protocol PRN Reason: SEVERE PAIN 7-10 *READ COMMENT Last Admin: 12/31/21 08:05 Dose: 0.5 mg Documented by: Lactated Ringer's (Lr) 1,000 mls @ 80 mls/hr IVCONT .[id number] [facility] Last Infusion: 01/01/22 08:44 Dose: 80 mls/hr Documented by: Oxycodone HCl (Oxycodone Hcl Immed Release 5 Mg Tablet) 5 mg PO Q4H PRN PRN Reason: Pain, Moderate (Pain Scale 4-6 Last Admin: 01/01/22 08:39 Dose: 5 mg Documented by: Oxycodone HCl (Oxycodone Hcl Immed Release 5 Mg Tablet) 10 mg PO Q4H PRN PRN Reason: Pain, Severe (Pain Scale 7-10) Sodium Chloride (0.9 % Sodium Chloride Flush 3 Ml Syringe) 3 ml IVFLUSH QSHIFT [facility] Last Admin: 01/01/22 08:36 Dose: Not Given Documented by: Time Spent With Patient Time: Total time spent is greater than 50% in coordination of care (as documented) at patient's floor/unit and/or counseling patient: Procedures Date of Service Date of Service: 01/01/22 Quality Stroke Does the patient have a stroke diagnosis?: No VTE Prior VTE?: No VTE Risk Level:: Surgical - high VTE Device Contraindication: N/A - Device Ordered VTE Drug Contraindication: N/A - Med Ordered
--- NOTE | 2022-01-01 16:06 | PM.EVENT ---
Event Note Date of Service: 01/01/22 Event Note: Pt seen events and med reviewed and discussed with Dr. Vences, no acute issues at moment, holding eliquis till tomorrow. DC IV Fluid. Will reassess tomorrow.
[2022-01-01] MEDS: 0.9 % Sodium Chloride Flush 3 ML SYRINGE IVFLUSH (18:00)
[2022-01-01] MEDS: HYDROmorphone HCl 0.5 MG/0.5 ML SYRINGE IVPUSH (18:09)
[2022-01-02] MEDS: oxyCODONE HCl Immed Release 5 MG TABLET PO ×3 (00:16→16:29)
[2022-01-02] MEDS: 0.9 % Sodium Chloride Flush 3 ML SYRINGE IVFLUSH ×4 (00:19→20:36)
[2022-01-02] MEDS: Heparin Sodium,Porcine 5,000 UNIT/ML VIAL 5000 UNIT SUBCUT ×3 (00:19→16:32)
[2022-01-02 04:00] VITALS: BP 141/57; PULSE 76; RESP 17; TEMP 36.6; O2SAT 95
[2022-01-02 06:00] VITALS: BMI 24.0
[2022-01-02 06:42] LABS: MANUAL DIFF FLAG NO
[2022-01-02 06:50] LABS: Basophils Percent Auto 0.4 % (0-2); Eosinophils Absolute Auto 0.3 X10*3/uL (0.0-0.4); Eosinophils Percent Auto 4.3 % (0-4); Hematocrit 36.7 % (42.0-52.0); Hemoglobin 12.7 g/dl (14.0-18.0); Imm Gran Abs Auto 0.02 X10*3/uL (0.00-0.03); Imm Gran Pct Auto 0.3 % (0.0-0.4); Lymphocytes Absolute Auto 1.4 X10*3/uL (1.2-4.9); Lymphocytes Percent Auto 21.4 % (20-40); Mean Corpuscular HGB Conc 34.6 g/dl (31.0-36.0); Mean Corpuscular Hemoglobin 32.9 pg (27.0-33.0); Mean Corpuscular Volume 95.1 fL (80.0-98.0); Mean Platelet Volume 8.6 fL (9.4-12.4); Monocytes Absolute Auto 0.7 X10*3/uL (0.1-1.2); Monocytes Percent Auto 10.8 % (2-11); Neutrophils Absolute Auto 4.2 x10*3/uL (2.0-8.3); Neutrophils Percent Auto 62.8 % (45-73); Platelet Count 169 X10*3/uL (160-400); Red Blood Count 3.86 X10*6/uL (4.60-5.80); Red Cell Distribution Width 13.1 % (11.0-16.0); White Blood Count 6.7 X10*3/uL (4.8-10.8)
[2022-01-02 07:16] LABS: Anion Gap 10 (12-20); Blood Urea Nitrogen 16 mg/dL (9-16); Calcium 7.8 mg/dL (8.4-10.2); Carbon Dioxide 27 mmol/L (22-29); Chloride 101 mmol/L (96-108); Creatinine Clr Calc Pharmacy 64.1; Estimated Glomerular Filt Rate > 60; Glucose Random 107 mg/dL (60-115); Potassium 4.2 mmol/L (3.3-5.1); Sodium 134 mmol/L (135-145)
[2022-01-02 07:26] VITALS: BP 127/62; PULSE 75; RESP 19; TEMP 36.7; O2SAT 94
[2022-01-02] MEDS: Aspirin 81 MG TAB.CHEW PO (08:43)
--- NOTE | 2022-01-02 09:02 | MHC.CM.PN ---
Male 71 POD#3 Illius resolving. Patient started on full liquids yesterday. DP home with family support and transportation.
--- NOTE | 2022-01-02 09:47 | P.PNIM_ITS ---
Subjective Subjective Date of Service: 01/03/22 Interval History: f/u on med consult for medical management ? S/P aortobifemoral bypass with re- exploration required of the left profundus femoral. ? Doing well, no new issues, constipation Review of Systems no fever no pain in the feeet constipation Physical Exam Vital Signs: Vital Signs: Last Vital Signs Temp 98.0 F 01/02/22 07:26 Pulse 75 01/02/22 07:26 Resp 19 01/02/22 07:26 BP 127/62 01/02/22 07:26 Pulse Ox 94 01/02/22 07:26 BMI result Body Mass Index 24.0 Objective Data Active Medications Acetaminophen (Acetaminophen 325 Mg Tablet) 650 mg PO Q6H PRN PRN Reason: Pain, Mild (Pain Scale 1-3) Aspirin (Aspirin 81 Mg Tab.Chew) 81 mg PO DAILY [facility] Last Admin: 01/02/22 08:43 Dose: 81 mg Documented by: MARCI Atorvastatin Calcium (Atorvastatin Calcium 40 Mg Tablet) 40 mg PO BEDTIME [facility] Heparin Sodium (Porcine) (Heparin Sodium,Porcine 5,000 Unit/Ml Vial) 5,000 unit SUBCUT Q8H [facility] Last Admin: 01/02/22 08:44 Dose: 5,000 unit Documented by: MARCI Hydromorphone HCl (Hydromorphone Hcl 0.5 Mg/0.5 Ml Syringe) 0.5 mg IVPUSH Q1H PRN; Protocol PRN Reason: SEVERE PAIN 7-10 *READ COMMENT Last Admin: 01/01/22 18:09 Dose: 0.5 mg Documented by: NEIL Oxycodone HCl (Oxycodone Hcl Immed Release 5 Mg Tablet) 5 mg PO Q4H PRN PRN Reason: Pain, Moderate (Pain Scale 4-6 Last Admin: 01/02/22 08:44 Dose: 5 mg Documented by: MARCI Oxycodone HCl (Oxycodone Hcl Immed Release 5 Mg Tablet) 10 mg PO Q4H PRN PRN Reason: Pain, Severe (Pain Scale 7-10) Sodium Chloride (0.9 % Sodium Chloride Flush 3 Ml Syringe) 3 ml IVFLUSH QSHIFT [facility] Last Admin: 01/02/22 09:04 Dose: 3 ml Documented by: MARCI Labs CBC & Chem 7: 01/02/22 06:24 01/02/22 06:24 Labs: Laboratory Results - last 24 hr 01/02/22 01/02/22 06:24 06:24 MCV 95.1 MCH 32.9 MCHC 34.6 RDW 13.1 Plt Count 169 MPV 8.6 L Immature Gran % (Auto) 0.3 Neut % (Auto) 62.8 Lymph % (Auto) 21.4 Kay % (Auto) 10.8 Eos % (Auto) 4.3 H Baso % (Auto) 0.4 Lymph # (Auto) 1.4 Kay # (Auto) 0.7 Eos # (Auto) 0.3 Baso # (Auto) 0.0 Abs Immat Gran (auto) 0.02 Absolute Neuts (auto) 4.2 Absolute Nucleated RBC 0.000 Nucleated RBC % (auto) 0.0 Anion Gap 10 L Estim Creat Clear Calc 64.1 Estimated GFR > 60 Random Glucose 107 Calcium 7.8 L Assessment and Plan (1) Elevated cholesterol: Status: Acute (2) Peripheral vascular disease: Status: Acute Plan 71 yo M with long smoking hx and severe claudication.? S/P aortobifemoral bypass with re-exploration required of the left profundus femoral. Doing well post op, feel constipated, no acute medical issues otherwise, miralax for constipation Quality Stroke Does the patient have a stroke diagnosis?: No VTE Prior VTE?: No VTE Risk Level:: Surgical - high VTE Device Contraindication: N/A - Device Ordered VTE Drug Contraindication: N/A - Med Ordered
--- NOTE | 2022-01-02 10:19 | HO.VASCPN ---
Subjective Subjective Date of Service: 01/02/22 Patient reports: no new complaints and feels better Interval history: patient seen and examined. He is postop day 4 status post open aortobifem. He appears to be doing relatively well. He continues to have some mild abdominal discomfort. He is currently passing flatus but did not have a bowel movement of yet. He did tolerate full liquids with no difficulty. He is hungry this morning. also of note he did ambulate with physical therapy yesterday and had no difficulty Physical Exam Vital Signs: Vital Signs: Last Vital Signs Temp 98.0 F 01/02/22 07:26 Pulse 75 01/02/22 07:26 Resp 19 01/02/22 07:26 BP 127/62 01/02/22 07:26 Pulse Ox 94 01/02/22 07:26 BMI result Body Mass Index 24.0 Const: General: cooperative, healthy appearing and no acute distress Orientation/consciousness: oriented to person, oriented to place and oriented to time HEENT: Head: Yes normal to inspection Neck: Carotids: no bruits Chest: Chest palpation & inspection: normal inspection of the chest Resp: Effort & Inspection: normal respiratory effort and able to speak in complete sentences Auscultation: clear to auscultation bilaterally Cardio: Rate: regular rate Heart sounds: S1 normal heart sound present and S2 normal heart sound present GI: Inspection: Yes normal to inspection Skin: Other: Abdomen and groin incisions healing well. Dressing with minimal drainage General skin exam: no rashes or lesions noted Wounds: no wounds Neuro: General: oriented to person, oriented to place, oriented to time and CN's II-XI intact bilaterally Extrem: General: Yes normal to inspection, Yes full ROM and Yes no clubbing, cyanosis or edema Psych: Appearance: grossly normal and well kempt Speech and movement: Normal speech and movement present Affect: normal affect Progress Note: A&P Assessment and plan (1) Aortoiliac occlusive disease: Status: Acute Plan patient is stable status post aortobifem. We are waiting postop ileus to resolve. I will advance him to a regular diet. In addition he will receive MiraLax to try to help with the postop ileus. Once he does have a bowel movement I do think he will be stable for potential discharge. Hopefully that will be within the next day or so. Fall Risk Details Current Medications: Current Medications Acetaminophen (Acetaminophen 325 Mg Tablet) 650 mg PO Q6H PRN PRN Reason: Pain, Mild (Pain Scale 1-3) Aspirin (Aspirin 81 Mg Tab.Chew) 81 mg PO DAILY [facility] Last Admin: 01/02/22 08:43 Dose: 81 mg Documented by: Atorvastatin Calcium (Atorvastatin Calcium 40 Mg Tablet) 40 mg PO BEDTIME [facility] Heparin Sodium (Porcine) (Heparin Sodium,Porcine 5,000 Unit/Ml Vial) 5,000 unit SUBCUT Q8H [facility] Last Admin: 01/02/22 08:44 Dose: 5,000 unit Documented by: Hydromorphone HCl (Hydromorphone Hcl 0.5 Mg/0.5 Ml Syringe) 0.5 mg IVPUSH Q1H PRN; Protocol PRN Reason: SEVERE PAIN 7-10 *READ COMMENT Last Admin: 01/01/22 18:09 Dose: 0.5 mg Documented by: Oxycodone HCl (Oxycodone Hcl Immed Release 5 Mg Tablet) 5 mg PO Q4H PRN PRN Reason: Pain, Moderate (Pain Scale 4-6 Last Admin: 01/02/22 08:44 Dose: 5 mg Documented by: Oxycodone HCl (Oxycodone Hcl Immed Release 5 Mg Tablet) 10 mg PO Q4H PRN PRN Reason: Pain, Severe (Pain Scale 7-10) Polyethylene Glycol (Polyethylene Glycol 3350 17 Gm Powd.Pack) 17 gm PO DAILY PRN PRN Reason: Constipation Sodium Chloride (0.9 % Sodium Chloride Flush 3 Ml Syringe) 3 ml IVFLUSH QSHIFT [facility] Last Admin: 01/02/22 09:04 Dose: 3 ml Documented by: Time Spent With Patient Time: Total time spent is greater than 50% in coordination of care (as documented) at patient's floor/unit and/or counseling patient: Procedures Date of Service Date of Service: 01/02/22 Quality Stroke Does the patient have a stroke diagnosis?: No VTE Prior VTE?: No VTE Risk Level:: Surgical - high VTE Device Contraindication: N/A - Device Ordered VTE Drug Contraindication: N/A - Med Ordered
[2022-01-02 11:14] VITALS: BP 118/65; PULSE 77; RESP 20; TEMP 36.9; O2SAT 96
[2022-01-02] MEDS: polyethylene glycoL 3350 17 GM POWD.PACK PO (12:04)
[2022-01-02 16:00] VITALS: BP 143/70; PULSE 71; RESP 17; TEMP 36.7; O2SAT 96
[2022-01-02 19:44] VITALS: BP 148/67; PULSE 72; RESP 18; TEMP 37; O2SAT 98
[2022-01-02 23:44] VITALS: BP 138/76; PULSE 73; RESP 20; TEMP 37.6; O2SAT 97
[2022-01-03] VITALS (7 sets, daily range): BP systolic 136–156; BP diastolic 64–79; PULSE 72–88; RESP 16–20; TEMP 36.4–37.2; O2SAT 94–100; BMI 21.1
[2022-01-03] MEDS: oxyCODONE HCl Immed Release 5 MG TABLET PO ×2 (00:22→09:37)
[2022-01-03] MEDS: Heparin Sodium,Porcine 5,000 UNIT/ML VIAL 5000 UNIT SUBCUT ×3 (00:23→17:54)
--- NOTE | 2022-01-03 08:25 | P.PNIM_ITS ---
Subjective Subjective Date of Service: 01/04/22 Interval History: f/u on med consult for medical management ? S/P aortobifemoral bypass with re- exploration required of the left profundus femoral. ? Doing well, no new compolaint, no pain, persistent constipation Review of Systems no fever no pain in the feeet constipation Physical Exam Vital Signs: Vital Signs: Last Vital Signs Temp 97.6 F 01/03/22 08:00 Pulse 78 01/03/22 08:00 Resp 16 01/03/22 08:00 BP 136/64 01/03/22 08:00 Pulse Ox 95 01/03/22 08:00 BMI result Body Mass Index 21.1 Const: Other: General: AO X 3, no acute distress Resp: CTA bilateral CVS: S1,S2,RRR GI: +BS, NT, no distention Skin: No rash Neuro: motor grossly intact Psych: appropriate affect Objective Data Active Medications Acetaminophen (Acetaminophen 325 Mg Tablet) 650 mg PO Q6H PRN PRN Reason: Pain, Mild (Pain Scale 1-3) Aspirin (Aspirin 81 Mg Tab.Chew) 81 mg PO DAILY [facility] Last Admin: 01/02/22 08:43 Dose: 81 mg Documented by: MARCI Atorvastatin Calcium (Atorvastatin Calcium 40 Mg Tablet) 40 mg PO BEDTIME [facility] Last Admin: 01/02/22 20:36 Dose: Not Given Documented by: DEREJE Non-Admin Reason: Patient Refused Comments: Pt states hes taken lipitor in past and its given him bad muscle pain Heparin Sodium (Porcine) (Heparin Sodium,Porcine 5,000 Unit/Ml Vial) 5,000 unit SUBCUT Q8H [facility] Last Admin: 01/03/22 00:23 Dose: 5,000 unit Documented by: DEREJE Hydromorphone HCl (Hydromorphone Hcl 0.5 Mg/0.5 Ml Syringe) 0.5 mg IVPUSH Q1H PRN; Protocol PRN Reason: SEVERE PAIN 7-10 *READ COMMENT Last Admin: 01/01/22 18:09 Dose: 0.5 mg Documented by: NEIL Oxycodone HCl (Oxycodone Hcl Immed Release 5 Mg Tablet) 5 mg PO Q4H PRN PRN Reason: Pain, Moderate (Pain Scale 4-6 Last Admin: 01/03/22 00:22 Dose: 5 mg Documented by: DEREJE Oxycodone HCl (Oxycodone Hcl Immed Release 5 Mg Tablet) 10 mg PO Q4H PRN PRN Reason: Pain, Severe (Pain Scale 7-10) Polyethylene Glycol (Polyethylene Glycol 3350 17 Gm Powd.Pack) 17 gm PO DAILY PRN PRN Reason: Constipation Sodium Chloride (0.9 % Sodium Chloride Flush 3 Ml Syringe) 3 ml IVFLUSH QSHIFT [facility] Last Admin: 01/02/22 20:36 Dose: 3 ml Documented by: DEREJE Labs CBC & Chem 7: 01/02/22 06:24 01/02/22 06:24 Assessment and Plan (1) Constipation: Status: Acute Plan 71 yo M with long smoking hx and severe claudication.? S/P aortobifemoral bypass with re-exploration required of the left profundus femoral. Doing well post op, feel constipated, no acute medical issues otherwise, miralax for constipation Quality Stroke Does the patient have a stroke diagnosis?: No VTE Prior VTE?: No VTE Risk Level:: Surgical - high VTE Device Contraindication: N/A - Device Ordered VTE Drug Contraindication: N/A - Med Ordered
[2022-01-03] MEDS: 0.9 % Sodium Chloride Flush 3 ML SYRINGE IVFLUSH ×3 (09:38→21:11)
[2022-01-03] MEDS: Aspirin 81 MG TAB.CHEW PO (09:38)
[2022-01-03] MEDS: polyethylene glycoL 3350 17 GM POWD.PACK PO (09:54)
[2022-01-04] MEDS: Heparin Sodium,Porcine 5,000 UNIT/ML VIAL 5000 UNIT SUBCUT ×4 (00:33→21:06)
[2022-01-04 03:48] VITALS: BP 146/67; PULSE 88; RESP 19; TEMP 37.1; O2SAT 97
[2022-01-04 07:15] VITALS: BP 117/60; PULSE 75; RESP 16; TEMP 37; O2SAT 95
[2022-01-04] MEDS: polyethylene glycoL 3350 17 GM POWD.PACK PO (07:41)
[2022-01-04] MEDS: Aspirin 81 MG TAB.CHEW PO (07:41)
[2022-01-04] MEDS: 0.9 % Sodium Chloride Flush 3 ML SYRINGE IVFLUSH ×3 (07:41→21:06)
[2022-01-04 11:07] VITALS: BP 137/62; PULSE 75; RESP 16; TEMP 37.1; O2SAT 96
--- NOTE | 2022-01-04 11:17 | HO.PM.IMPN ---
Subjective Subjective Date of Service: 01/04/22 Interval History: f/u on med consult for medical management ? S/P aortobifemoral bypass with re-exploration required of the left profundus femoral. ? Doing well, no new compolaint,other than persistent constipation despite Miralax Review of Systems no fever no pain in the feeet constipation Physical Exam Vital Signs: Vital Signs: Last Vital Signs Temp 98.8 F 01/04/22 11:07 Pulse 75 01/04/22 11:07 Resp 16 01/04/22 11:07 BP 137/62 01/04/22 11:07 Pulse Ox 96 01/04/22 11:07 BMI result Body Mass Index 21.1 Const: Other: General: AO X 3, no acute distress Resp: CTA bilateral CVS: S1,S2,RRR GI: +BS, NT, no distention Skin: No rash Neuro: motor grossly intact Psych: appropriate affect Objective Data Active Medications Acetaminophen (Acetaminophen 325 Mg Tablet) 650 mg PO Q6H PRN PRN Reason: Pain, Mild (Pain Scale 1-3) Aspirin (Aspirin 81 Mg Tab.Chew) 81 mg PO DAILY [facility] Last Admin: 01/04/22 07:41 Dose: 81 mg Documented by: NIKKI Atorvastatin Calcium (Atorvastatin Calcium 40 Mg Tablet) 40 mg PO BEDTIME [facility] Last Admin: 01/03/22 21:11 Dose: Not Given Documented by: LINH Non-Admin Reason: Patient Refused Heparin Sodium (Porcine) (Heparin Sodium,Porcine 5,000 Unit/Ml Vial) 5,000 unit SUBCUT Q8H [facility] Last Admin: 01/04/22 07:41 Dose: 5,000 unit Documented by: NIKKI Oxycodone HCl (Oxycodone Hcl Immed Release 5 Mg Tablet) 10 mg PO Q4H PRN PRN Reason: Pain, Severe (Pain Scale 7-10) Polyethylene Glycol (Polyethylene Glycol 3350 17 Gm Powd.Pack) 17 gm PO DAILY PRN PRN Reason: Constipation Last Admin: 01/04/22 07:41 Dose: 17 gm Documented by: NIKKI Sodium Chloride (0.9 % Sodium Chloride Flush 3 Ml Syringe) 3 ml IVFLUSH QSHIFT [facility] Last Admin: 01/04/22 07:41 Dose: 3 ml Documented by: NIKKI Labs CBC & Chem 7: 04/01/22 06:24 01/02/22 06:24 Assessment and Plan (1) Constipation: Status: Acute Plan 71 yo M with long smoking hx and severe claudication.? S/P aortobifemoral bypass with re-exploration required of the left profundus femoral. Doing well post op, feel constipated, no acute medical issues otherwise, miralax for constipation, add Lactulose Quality Stroke Does the patient have a stroke diagnosis?: No VTE Prior VTE?: No VTE Risk Level:: Surgical - high VTE Device Contraindication: N/A - Device Ordered VTE Drug Contraindication: N/A - Med Ordered
--- NOTE | 2022-01-04 12:10 | HO.VASCPN ---
Subjective Subjective Date of Service: 01/04/22 Patient reports: no new complaints, feels better and tolerating a regular diet Interval history: 71-year-old gentleman postop day 6 status post open aortobifem. He is doing relatively well on the floor. Pain is well controlled. He is tolerating a diet. He is passing flatus. He had a very small hard bowel movement 2 nights ago and has had nothing since. This had been a problem for him preoperatively. He is constipated, In addition to a postop ileus. He is ambulating well with no difficulty. He reports that his legs feel better. Physical Exam Vital Signs: Vital Signs: Last Vital Signs Temp 98.8 F 01/04/22 11:07 Pulse 75 01/04/22 11:07 Resp 16 01/04/22 11:07 BP 137/62 01/04/22 11:07 Pulse Ox 96 01/04/22 11:07 BMI result Body Mass Index 21.1 Const: General: cooperative, healthy appearing and no acute distress Orientation/consciousness: oriented to person, oriented to place and oriented to time HEENT: Head: Yes normal to inspection Neck: Carotids: no bruits Chest: Chest palpation & inspection: normal inspection of the chest Resp: Effort & Inspection: normal respiratory effort and able to speak in complete sentences Auscultation: clear to auscultation bilaterally Cardio: Rate: regular rate Heart sounds: S1 normal heart sound present and S2 normal heart sound present Peripheral pulses: dorsalis pedis present ( Of note he has palpable DP pulses bilateral lower extremities.) GI: Inspection: Yes normal to inspection Skin: Other: Bilateral groin dressings were removed. Appear to be healing well. No evidence of any erythema. General skin exam: no rashes or lesions noted Wounds: no wounds Neuro: General: oriented to person, oriented to place, oriented to time and CN's II-XI intact bilaterally Extrem: General: Yes normal to inspection, Yes full ROM and Yes no clubbing, cyanosis or edema Psych: Appearance: grossly normal and well kempt Speech and movement: Normal speech and movement present Affect: normal affect Progress Note: A&P Assessment and plan (1) Aortoiliac occlusive disease: Status: Acute Plan Patient is status post open aortobifem. He is doing extremely well. Would like him to have a good bowel movement prior to discharge. Discussed with the hospitalist team. Will will increase bowel regimen. Would anticipate discharge within the next day or 2. Thank you to the hospitalist team for their assistance in this patients care. Fall Risk Details Current Medications: Current Medications Acetaminophen (Acetaminophen 325 Mg Tablet) 650 mg PO Q6H PRN PRN Reason: Pain, Mild (Pain Scale 1-3) Aspirin (Aspirin 81 Mg Tab.Chew) 81 mg PO DAILY [facility] Last Admin: 01/04/22 07:41 Dose: 81 mg Documented by: Atorvastatin Calcium (Atorvastatin Calcium 40 Mg Tablet) 40 mg PO BEDTIME [facility] Last Admin: 01/03/22 21:11 Dose: Not Given Documented by: Heparin Sodium (Porcine) (Heparin Sodium,Porcine 5,000 Unit/Ml Vial) 5,000 unit SUBCUT Q8H [facility] Last Admin: 01/04/22 07:41 Dose: 5,000 unit Documented by: Oxycodone HCl (Oxycodone Hcl Immed Release 5 Mg Tablet) 10 mg PO Q4H PRN PRN Reason: Pain, Severe (Pain Scale 7-10) Polyethylene Glycol (Polyethylene Glycol 3350 17 Gm Powd.Pack) 17 gm PO DAILY PRN PRN Reason: Constipation Last Admin: 01/04/22 07:41 Dose: 17 gm Documented by: Sodium Chloride (0.9 % Sodium Chloride Flush 3 Ml Syringe) 3 ml IVFLUSH QSHIFT [facility] Last Admin: 01/04/22 07:41 Dose: 3 ml Documented by: Time Spent With Patient Time: Total time spent is greater than 50% in coordination of care (as documented) at patient's floor/unit and/or counseling patient: Procedures Date of Service Date of Service: 01/04/22 Quality Stroke Does the patient have a stroke diagnosis?: No VTE Prior VTE?: No VTE Risk Level:: Surgical - high VTE Device Contraindication: N/A - Device Ordered VTE Drug Contraindication: N/A - Med Ordered
[2022-01-04] MEDS: Lactulose 20 GM/30 ML SOLUTION PO (13:45)
[2022-01-04 15:14] VITALS: BP 132/98; PULSE 85; RESP 17; TEMP 36.4; O2SAT 99
[2022-01-04 16:00] VITALS: O2SAT 99
[2022-01-04 20:00] VITALS: BP 131/63; PULSE 66; RESP 18; TEMP 36.2; O2SAT 92
[2022-01-04 22:23] LABS: OBS Int Ctl Valid YES; OBS1 NEGATIVE (NEGATIVE)
[2022-01-05] VITALS: BP 127/73; PULSE 78; RESP 15; TEMP 37; O2SAT 97
[2022-01-05 04:00] VITALS: BP 138/70; PULSE 78; RESP 15; TEMP 36.9; O2SAT 94
[2022-01-05 06:00] VITALS: BMI 22.9
[2022-01-05 07:59] VITALS: BP 137/79; PULSE 75; RESP 20; TEMP 36.9; O2SAT 94
[2022-01-05] MEDS: Heparin Sodium,Porcine 5,000 UNIT/ML VIAL 5000 UNIT SUBCUT (08:33)
[2022-01-05] MEDS: polyethylene glycoL 3350 17 GM POWD.PACK PO (08:33)
[2022-01-05] MEDS: Aspirin 81 MG TAB.CHEW PO (08:33)
[2022-01-05] MEDS: 0.9 % Sodium Chloride Flush 3 ML SYRINGE IVFLUSH (08:33)
--- NOTE | 2022-01-05 10:39 | P.PNIM_ITS ---
Subjective Subjective Date of Service: 01/05/22 Interval History: f/u on med consult for medical management ? S/P aortobifemoral bypass with re- exploration required of the left profundus femoral. ? Doing well, no new compolaint, had bowel movment yesterday Review of Systems no fever no pain in the feeet constipation Physical Exam Vital Signs: Vital Signs: Last Vital Signs Temp 98.5 F 01/05/22 07:59 Pulse 75 01/05/22 07:59 Resp 20 01/05/22 07:59 BP 137/79 01/05/22 07:59 Pulse Ox 94 01/05/22 07:59 BMI result Body Mass Index 22.9 Const: Other: General: AO X 3, no acute distress Resp: CTA bilateral CVS: S1,S2,RRR GI: +BS, NT, no distention Skin: No rash, surguical wound clean, leland in place Neuro: motor grossly intact Psych: appropriate affect Objective Data Active Medications Acetaminophen (Acetaminophen 325 Mg Tablet) 650 mg PO Q6H PRN PRN Reason: Pain, Mild (Pain Scale 1-3) Aspirin (Aspirin 81 Mg Tab.Chew) 81 mg PO DAILY [facility] Last Admin: 01/05/22 08:33 Dose: 81 mg Documented by: LA Atorvastatin Calcium (Atorvastatin Calcium 40 Mg Tablet) 40 mg PO BEDTIME [facility] Last Admin: 01/04/22 21:07 Dose: Not Given Documented by: CARSON Non-Admin Reason: Patient Refused Heparin Sodium (Porcine) (Heparin Sodium,Porcine 5,000 Unit/Ml Vial) 5,000 unit SUBCUT Q8H [facility] Last Admin: 01/05/22 08:33 Dose: 5,000 unit Documented by: LA Polyethylene Glycol (Polyethylene Glycol 3350 17 Gm Powd.Pack) 17 gm PO TID [facility] Last Admin: 01/05/22 08:33 Dose: 17 gm Documented by: LA Sodium Chloride (0.9 % Sodium Chloride Flush 3 Ml Syringe) 3 ml IVFLUSH QSHIFT [facility] Last Admin: 01/05/22 08:33 Dose: 3 ml Documented by: LA Labs CBC & Chem 7: 01/02/22 06:24 01/02/22 06:24 Labs: Laboratory Results - last 24 hr 01/04/22 20:42 Stool Occult Blood NEGATIVE Assessment and Plan (1) Constipation: Status: Acute Plan 71 yo M with long smoking hx and severe claudication.? S/P aortobifemoral bypass with re-exploration required of the left profundus femoral. Doing well post op, feel constipated, no acute medical issues otherwise, miralax for constipation. Recommend high fiber diet. medically no acute issues. Quality Stroke Does the patient have a stroke diagnosis?: No VTE Prior VTE?: No VTE Risk Level:: Surgical - high VTE Device Contraindication: N/A - Device Ordered VTE Drug Contraindication: N/A - Med Ordered
--- NOTE | 2022-01-05 10:59 | PM.DS ---
DS: Providers Provider Date of Service: 01/05/22 Date of admission: 12/29/21 06:20 Primary care physician: Inocencio Stack MD Consults: 12/31/21 10:17 Consult to Hospitalist Routine Consulting Provider: Hospitalist Reason For Exam: Medical management s/p aortobifem bypass 01/01/22 14:31 Consult to Hospitalist Routine Consulting Provider: Hospitalist Reason For Exam: med management DS: Diagnosis Discharge Diagnosis (1) Constipation: Status: Acute DS: Summary Hospital Course Hospital Course: Patient underwent aortobifemoral bypass along with redo of the left femoral limb of the bypass. This was all at the same setting. This was done exactly 1 week prior. Did well postoperatively. He was observed in the ICU for 2 days. He was subsequently transferred to our [facility] unit. He was slow to recover his ileus. He was up ambulating. He did recognize that his pain had significantly decreased in the his lower extremity. Constipation was an issue form. He was subsequently given MiraLax and lactulose. This did eventually resolve. Condition upon discharge was on regular diet. He was subsequently discharged. Time Spent with Patient Time attestation: Total time spent providing and/or coordinating discharge services: Discharge coordination time: Greater than 30 minutes Quality: Safe Use of Opioids Does Pt have an Active Cancer Diagnosis on the Problem List?: No Quality: Stroke Does the patient have a stroke diagnosis?: No Physical Exam Vital Signs: Vital Signs: Last Vital Signs Temp 98.5 F 01/05/22 07:59 Pulse 75 01/05/22 07:59 Resp 20 01/05/22 07:59 BP 137/79 01/05/22 07:59 Pulse Ox 94 01/05/22 07:59 BMI result Body Mass Index 22.9 Const: General: cooperative, healthy appearing and no acute distress Orientation/consciousness: oriented to person, oriented to place and oriented to time HEENT: Head: Yes normal to inspection Neck: Carotids: no bruits Chest: Chest palpation & inspection: normal inspection of the chest Resp: Effort & Inspection: normal respiratory effort and able to speak in complete sentences Auscultation: clear to auscultation bilaterally Cardio: Rate: regular rate Heart sounds: S1 normal heart sound present and S2 normal heart sound present GI: Inspection: Yes normal to inspection Skin: Other: Abdomen and groin incisions well healing no drainage no cellulitis General skin exam: no rashes or lesions noted Wounds: no wounds Neuro: General: oriented to person, oriented to place, oriented to time and CN's II-XI intact bilaterally Extrem: General: Yes normal to inspection, Yes full ROM and Yes no clubbing, cyanosis or edema Psych: Appearance: grossly normal and well kempt Speech and movement: Normal speech and movement present Affect: normal affect DS: Data Data Completed and Pending Completed studies during hospitalization [Text1]: Pending at discharge 12/29/21 12:14 Surgical [PTH] Routine Labs on day of discharge: Laboratory Results - last 24 hr 01/04/22 20:42 Stool Occult Blood NEGATIVE Discharge Plan Discharge Anticipated Discharge Date/Time: 01/05/22 10:33 Patient Disposition: Home, Self-Care Discharge Diagnosis: Status post aortobifemoral bypass Referrals: Inocencio Stack MD [Primary Care Provider] - 1 Week Discharge Medications: New clopidogrel [Plavix] 75 mg tablet 75 mg PO DAILY Qty: 90 1RF oxycodone-acetaminophen [Percocet] 5-325 mg tablet 1 tab PO Q8H PRN (Reason: pain) Qty: 20 0RF Continued ibuprofen 800 mg tablet 800 mg PO Q8H 0RF aspirin [Adult Aspirin Regimen] 81 mg tablet,delayed release (DR/EC) 81 mg PO DAILY 0RF rosuvastatin [Crestor] 10 mg tablet 10 mg PO DAILY Qty: 90 3RF Discontinued Eliquis 2.5 mg tablet 2.5 mg PO BID Qty: 60 0RF Discharge Orders: Discharge Order (Routine); Ordered 01/05/22 Ordered By: Corby Vences Diet: advance to usual diet Activity on Discharge: As tolerated Stand Alone Forms: Patient Portal Discharge page Activity Restrictions/Additional Instructions: David were used but you may shower tomorrow. Please pat the area dry. No dressing required Take it easy today and you may ambulate around the house. You may climb a flight of stairs as tolerated Do not lift anything heavier than a gallon of milk. See Dr. Vences in follow-up in approximately 2 weeks time for postoperative follow-up and staple removal. You should already have an appointment if not please call my office at [phone] Please see above for any change in medications If you notice excessive bleeding please immediately call my office or return to the emergency room. Care Plan Goals: Resolve aortic occlusive disease. Health Concerns: Peripheral vascular disease. Plan of Treatment: Surveillance follow-up with ultrasound. Assessment: Status post aortobifem.
[2022-01-05 11:34] VITALS: BP 150/82; PULSE 77; RESP 20; TEMP 37.1; O2SAT 99
--- NOTE | 2022-01-05 13:00 | MHC.CM.PN ---
IMM 01/05/22 Male 71 S/P surgical intervention. He is discharged to home with family support and assit w transportation.
== END 2022-01-05 13:47 | disposition home or self-care (01) | DRG 269 ==
LOC: HO.SSSA 06:23 → HO.ICU 15:27 → HO.IMC 12-31 16:21
PROVIDERS: Anesthesiology; Internal Medicine; Nurse Practitioner; Physician Assistant Medical; Admitting Provider Surgery Vascular Surgery; PCP Internal Medicine; Visit Provider Surgery Vascular Surgery
PROC: 04C00ZZ Extirpation of Matter from Abdominal Aorta, Open Approach (ICD-10-PCS; principal; 2021-12-29 07:30)
DX: I74.09 Other arterial embolism and thrombosis of abdominal aorta (principal); N17.9 Acute kidney failure, unspecified; E87.2 Acidosis; K56.7 Ileus, unspecified; J44.9 Chronic obstructive pulmonary disease, unspecified; K59.00 Constipation, unspecified; B35.6 Tinea cruris; N40.0 Benign prostatic hyperplasia without lower urinary tract symptoms; Z20.822 Contact with and (suspected) exposure to COVID-19; Z87.891 Personal history of nicotine dependence; Z79.02 Long term (current) use of antithrombotics/antiplatelets; Z79.82 Long term (current) use of aspirin; Z79.899 Other long term (current) drug therapy
CPT/HCPCS: 36415; 80048; 80053; 82272; 82550; 83605; 83735; 84100; 85025; 85027; 85610; 85730; 86850; 86900; 86901; 86923; 87635; 88304; 88311; 97162; C1757; C1758; C1768; J0690; J1100; J1170; J1940; J2250; J2370; J2405; J3010; Q9967

== ENCOUNTER → 2022-01-13 09:30 | Outpatient (BNVA) | payer MEDICARE, SELFPAY | PROVIDERS: PCP Internal Medicine; Visit Provider Surgery Vascular Surgery | DX: Z48.812 Encounter for surgical aftercare following surgery on the circulatory system (principal) | CPT/HCPCS: 99212 ==

== ENCOUNTER → 2022-03-10 13:25 | Outpatient (BNVA) | payer MEDICARE, SELFPAY | PROVIDERS: PCP Internal Medicine; Visit Provider Surgery Vascular Surgery | DX: I73.9 Peripheral vascular disease, unspecified (principal) | CPT/HCPCS: 99212 ==

== ENCOUNTER 2022-04-07 12:23 | Outpatient (REF) | payer MEDICARE, SELFPAY ==
--- NOTE | ~2022-04-07 | US_ITS ---
EXAMINATION: US RETROPERITONEAL LIMITED (AORTA) CLINICAL INFORMATION: Aortoiliac bypass graft. COMPARISON: CTA from 11/25/2021 TECHNIQUE: Reardon-scale, color Doppler and spectral Doppler evaluation of the abdominal aorta. FINDINGS: Distal torres martinez abdominal aorta is occluded. There is an abdominal aortic to bilateral femoral artery bypass graft. Patent flow is seen through the more proximal torres martinez abdominal aorta as well as throughout the bypass graft. The measurements of the aorta in maximum AP and transverse dimensions respectively are as follows: Proximal: 2.5 cm. Mid: 1.9 cm. Distal: Occluded PSV: 89.2 cm/s within the bypass graft. Normal arterial velocities with biphasic waveforms seen throughout the bypass graft and bilateral iliac artery bypass limbs. Peak systolic velocity in the right common femoral artery anastomosis measures 188 cm/s with biphasic waveforms. Peak systolic velocity in the left common femoral artery anastomosis measures 158 cm/s with biphasic waveforms. US/US abdominal aortic aneurysm IMPRESSION: Chronically occluded distal abdominal aorta with interval placement of abdominal aortic to bilateral femoral artery bypass graft which is widely patent.
--- NOTE | ~2022-04-07 | US_ITS ---
EXAMINATION: NONINVASIVE ASSESSMENT OF THE ARTERIES OF BOTH LOWER EXTREMITIES INCLUDING PVR EXAM AND BILATERAL LOWER EXTREMITY DUPLEX CLINICAL INFORMATION: Peripheral vascular disease COMPARISON: Ultrasound 10/21/2021 TECHNIQUE: Ankle pulse volume recordings, ankle pressure measurements and ankle brachial indices were obtained of the lower extremity arterial system bilaterally in addition to duplex Doppler techniques with wave form analysis and measurement of velocities in the common femoral, profunda femoral, superficial femoral, popliteal, tibial and peroneal arteries. The study was performed only at rest. FINDINGS: RIGHT LEG 1. Right Ankle-Brachial Index: 1.11 (higher of the DP/PT) >0.97-1.25 = normal - no significant arterial disease 0.75-0.96 = mild peripheral arterial disease 0.5-0.74 = moderate peripheral arterial disease <0.50 = severe peripheral arterial disease <0.30 = critical arterial disease 2. Segmental Pressures (mmHg): Brachial: 158 Ankle: PT 182, DP 169 3. PVR Waveforms: Ankle: No dicrotic notch 4. Direct Duplex: Common femoral artery: 118 cm/s, Multiphasic Profunda femoris artery: 81.5 cm/s, Multiphasic Superficial femoral artery (proximal): 120 cm/s, Multiphasic Superficial femoral artery (mid): 112 cm/s, Multiphasic Superficial femoral artery (distal): 111 cm/s, Multiphasic Proximal Popliteal artery: 51.1 cm/s, Multiphasic Distal popliteal artery: 73.9 cm/s, Multiphasic Mid posterior tibial artery: 109 cm/s, Multiphasic Peroneal artery: 45.2 cm/s, Multiphasic LEFT LE. Left Ankle-Brachial Index: 1.22 (higher of the DP/PT) >0.97-1.25 = normal - no significant arterial disease 0.75-0.96 = mild peripheral arterial disease 0.5-0.74 = moderate peripheral arterial disease <0.50 = severe peripheral arterial disease <0.30 = critical arterial disease 2. Segmental Pressures: Brachial: 164 Ankle: PT 200, DP 200 3. PVR Waveforms: Ankle: No dicrotic notch 4. Direct Duplex: Common femoral artery: 140 cm/s, Multiphasic Profunda femoris artery: 159 cm/s, monophasic Superficial femoral artery (proximal): 175 cm/s, Multiphasic Superficial femoral artery (mid): 129 cm/s, Multiphasic Superficial femoral artery (distal): 109 cm/s, Multiphasic Proximal Popliteal artery: 75 cm/s, Multiphasic Distal popliteal artery: 79.2 cm/s, Multiphasic Mid posterior tibial artery: 73.3 cm/s, Multiphasic Peroneal artery: 53.4 cm/s, Multiphasic US/US arterial duplex LE BI IMPRESSION: There is now multiphasic flow throughout the bilateral lower extremities. There continues to be monophasic flow within the left profunda femoris. Elevated bilateral ankle-brachial indices measuring 1.11 on the right and 1.22 on the left which may well be in part secondary to calcified, noncompressible vessels. Loss of dicrotic notch on PVR waveforms
== END 2022-04-07 12:24 | disposition home or self-care (01) ==
LOC: HO.US 12:23
PROVIDERS: Visit Provider Surgery Vascular Surgery
DX: I73.9 Peripheral vascular disease, unspecified (principal)
CPT/HCPCS: 76706; 93923; 93925

== ENCOUNTER → 2022-04-14 09:53 | Outpatient (BNVA) | payer MEDICARE, SELFPAY | PROVIDERS: PCP Internal Medicine; Visit Provider Surgery Vascular Surgery | DX: I73.9 Peripheral vascular disease, unspecified (principal); K59.09 Other constipation | CPT/HCPCS: 99212 ==

== ENCOUNTER 2022-05-09 03:06 | Emergency (ER) | payer MEDICARE, SELFPAY ==
[2022-05-09] VITALS (7 sets, daily range): BP systolic 140–172; BP diastolic 86–99; PULSE 130–153; RESP 12–23; O2SAT 93–100; BMI 21.7
--- NOTE | ~2022-05-09 | CT_ITS ---
EXAMINATION: CT HEAD WITHOUT CONTRAST (STROKE PROTOCOL) CLINICAL INFORMATION: Stroke protocol. COMPARISON: None TECHNIQUE: Contiguous axial imaging was performed from the skull base to vertex without intravenous administration of contrast. This CT examination was performed using dose optimization techniques as appropriate, variously including the following: *Automated exposure control *Adjustment of mA and/or kV according to patient size (this includes techniques or standardized protocols for targeted exams where dose is matched to indication/reason for exam; i.e. extremities or head) *Use of iterative reconstruction technique DLP: 1216 mGy-cm FINDINGS: Large right frontal lobar hemorrhage extending into the basal ganglia with surrounding vasogenic edema. The dominant central hematoma measures over 7 cm, and there are additional smaller surrounding hematomas within the right frontal lobe. Small overlying subarachnoid hemorrhage along the right frontal lobe. There is leftward midline shift of 1.0 cm at the septum pellucidum. Right lateral ventricle is effaced. Suspect right uncal herniation. CT/CT head for stroke IMPRESSION: Massive multifocal right frontal lobe hemorrhage with leftward midline shift and likely uncal herniation. This critical result was discussed with Yo ROJAS at 05/09/2022 3:28 AM and it was ascertained that the content and urgency of the report was understood at the time of direct communication.
--- NOTE | ~2022-05-09 | CT_ITS ---
EXAMINATION: CT CERVICAL SPINE WITHOUT CONTRAST CLINICAL INFORMATION: Fall. Pain. COMPARISON: None TECHNIQUE: Multidetector CT imaging of the cervical spine performed without the use of intravenous contrast. Coronal and sagittal reformats are reviewed. This CT examination was performed using dose optimization techniques as appropriate, variously including the following: *Automated exposure control *Adjustment of mA and/or kV according to patient size (this includes techniques or standardized protocols for targeted exams where dose is matched to indication/reason for exam; i.e. extremities or head) *Use of iterative reconstruction technique DLP: 544 mGy-cm FINDINGS: Atlantooccipital, atlantoaxial and cervical alignment are maintained. No acute fracture or subluxation. Vertebral body heights maintained. Prominent endplate osteophytes associated with uncovertebral arthrosis with obliteration of disc spaces present from C3 through C7 with varying degrees of foraminal narrowing at these levels, moderate to severe. There is at least mild streaky canal stenosis at C4-C5, C5-C6 and C6-C7. Paraspinal soft tissues unremarkable. CT/CT cervical spine wo con IMPRESSION: No acute fracture or malalignment.
--- NOTE | ~2022-05-09 | XR_ITS ---
EXAMINATION: XR CHEST CLINICAL INFORMATION: Confirm intubation COMPARISON: 10/20/2019 TECHNIQUE: Frontal view of the chest was obtained. XR/XR chest 1V FINDINGS/IMPRESSION: Endotracheal tube terminates 4.9 cm above the brian. Normal symmetric lung volumes. No parenchymal consolidation. No pleural effusion. No pneumothorax. Cardiomediastinal silhouette and pulmonary vascularity are within normal limits. No acute osseous abnormalities.
[2022-05-09 03:14] LABS: Glucose, Whole Blood 113 mg/dL (60-115)
[2022-05-09 03:14] LABS: Prothrombin Time Whole Bld POC 12.8 sec (11.1-13.5); ~PT, ~INR - Anti Coag Clinic 1.1 (0.9-1.1)
--- NOTE | 2022-05-09 03:16 | ED_ITS ---
HPI - Head Injury General Chief complaint: Stroke <CRYSTAL Wan - Last Filed: 05/09/22 04:12> Stated complaint: Stroke Alert <CRYSTAL Wan - Last Filed: 05/09/22 04:12> Time Seen by Provider: 05/09/22 03:08 <CRYSTAL Wan Last Filed: 05/09/22 04:12> Source: patient and EMS <CRYSTAL Wan Last Filed: 05/09/22 04:12> Mode of arrival: EMS <CRYSTAL Wan Last Filed: 05/09/22 04:12> Limitations: no limitations <CRYSTAL Wan Last Filed: 05/09/22 04:12> History of Present Illness HPI Narrative: This is a 71-year-old male past medical history significant for high cholesterol, peripheral vascular disease, aortoiliac occlusive disease presenting to the emergency department via EMS status post unwitnessed fall that is believed to be about 20 minutes prior to patient's arrival. According to EMS reported that patient got up to go to the bathroom was found on the floor, was then noted to have slurred speech, left-sided deficits. Patient does not recall the episode. Upon his arrival to the emergency department he is slurring his speech telling me he cannot move his left side, upper and lower extremities with weakness. Patient tells me he is on Plavix and aspirin. Patient denies chest pain, shortness of breath, fevers, chills, nausea, vomiting, abdominal pain, headcahe, vision changes. Patient was collared by EMS. Fast ED score of 5. I immediately called a stroke protocol. <CRYSTAL Wan Last Filed: 05/09/22 04:12> Related Data Home medications: Home Medications Medication Instructions Recorded Confirmed aspirin 81 mg tablet,delayed 81 mg PO DAILY 12/02/21 01/13/22 release (Adult Aspirin Regimen) Previous Rx's Medication Instructions Recorded rosuvastatin 10 mg tablet (Crestor) 10 mg PO DAILY #90 tabs 12/04/21 clopidogrel 75 mg tablet (Plavix) 75 mg PO DAILY #90 tabs 01/05/22 <CRYSTAL Wan Last Filed: 05/09/22 04:12> Allergies/Adverse reactions: Allergies Allergy/AdvReac Type Severity Reaction Status Date / Time No Known Allergies Allergy Verified 04/14/22 10:00 <CRYSTAL Wan - Last Filed: 05/09/22 04:12> Review of Systems Review of Systems: Constitutional : No Weight loss, No Fever, No Chills, No Fatigue, No Malaise ENT/Mouth : No sore throat, No Rhinorrhea Eyes: No Eye Pain, No Swelling, No Redness Cardiovascular : No Chest Pain, No SOB, No Dyspnea on Exertion, No Orthopnea, No Edema, No Palpitations Respiratory : No Cough, No Sputum, No Wheezing Gastrointestinal : No Nausea, No Vomiting, No Diarrhea, No Constipation, No abdominal Pain, No Hematochezia, No Melena Genitourinary : No Dysuria, No Urinary Frequency, No Hematuria, Musculoskeletal : No joint pain, No Myalgias, No Joint Swelling Skin : No Skin Lesions, No rash Neuro : + Weakness, No Numbness, No Dizziness, No Headache All other systems reviewed and are negative <CRYSTAL Wan - Last Filed: 05/09/22 04:12> Yes all other systems are reviewed and are negative <CRYSTAL Wan Last Filed: 05/09/22 04:12> [facility] Past Medical History Attestation statement: The following information was validated with the patient. <CRYSTAL Wan - Last Filed: 05/09/22 04:12> Source: old records reviewed and nursing notes reviewed <CRYSTAL Wan - Last Filed: 05/09/22 04:12> Medical History: Medical History Arthritis CAD (coronary artery disease) COPD (chronic obstructive pulmonary disease) Elevated cholesterol History of back pain History of BPH On anticoagulant therapy PVD (peripheral vascular disease) <CRYSTAL Wan - Last Filed: 05/09/22 04:12> Surgical History: Surgical History History of back surgery History of open reduction and internal fixation (ORIF) procedure Hx of colonoscopy <CRYSTAL Wan - Last Filed: 05/09/22 04:12> Social History Social History: Social History Household Members: Spouse Housing: House Are you a primary childcare center administrator to a significant other at home: No Do you presently have visiting nurse or other home services: No Patient Tobacco Use Status: Former Tobacco user Quit Date: 2020 Tobacco use type: Cigarette Cigarette Packs Per Day: 1 Cigarettes Per Day: 15 Years Smoked: 50 e-Cigarette/Vaping Use: Former Use Second Hand Smoke Exposure: No Substance Use Type: Marijuana Advance Directives: No service: No Current occupational status: retired Cognitive needs: No Hearing needs: No Vision needs: No <CRYSTAL Wan - Last Filed: 05/09/22 04:12> Physical Exam Vital Signs: Vital Signs: Last Vital Signs Pulse 150 H 05/09/22 04:55 Resp 12 05/09/22 04:55 BP 172/89 H 05/09/22 04:55 Pulse Ox 99 05/09/22 04:19 O2 Del Method 05/09/22 04:19 BMI result Body Mass Index 21.7 VSS <CRYSTAL Wan - Last Filed: 05/09/22 04:12> Vital Signs: Last Vital Signs Pulse 150 H 05/09/22 04:55 Resp 12 05/09/22 04:55 BP 172/89 H 05/09/22 04:55 Pulse Ox 99 05/09/22 04:19 O2 Del Method 05/09/22 04:19 BMI result Body Mass Index 21.7 <Marla Ames MD - Last Filed: 05/09/22 06:04> Appearance: Alert.? Oriented X3.?+ left sided facial facial droop + slurred speech Head: Normocephalic, no step-offs or deformities. No noted lacerations or abrasion to head Eyes: Pupils equal, round and reactive to light.? ENT: Pharynx normal.? Neck: Normal inspection.? Neck supple.? CVS: Normal heart rate and rhythm.? Pulses normal.? Respiratory: No respiratory distress.? Breath sounds normal.? Abdomen: Soft and nontender.? Skin: Skin warm and dry.? Normal skin color.? Normal skin turgor.?+ abrasion to right shoulder Extremities: No lower extremity edema.? 5/5 strength on right. Flacid on left upper and lower extremities cant hold left arm or leg up.. Back: No midline tenderness, no C-spine tenderness ( in collar) Neuro: Oriented X 3. Able to identify three objects.? + Left sided deficits to upper and lower extremities, patient drops arm cant hold them. 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 Decreased sensation to upper and lower extremities on left. Normal sensation on right. NIH stroke scale 13. <CRYSTAL Wan Last Filed: 05/09/22 04:12> Course Reevaluation(s) Reevaluation #1: Right frontal large hemorrhage noted on CT exam Reached out to [facility] for transfer as [facility] is on diversion. Neurologist at [facility] recommended platelets however we do not have any in house. <CRYSTAL Wan Last Filed: 05/09/22 04:12> Time: 03:34 <CRYSTAL Wan Last Filed: 05/09/22 04:12> Reevaluation #2: Patient is starting to have issues controlling his secretions becoming obtunded GCS now 9, I feel as though patient would benefit from endotracheal intubation, Dr. Ames at the bedside patient needs intubation at this time. CT of the head with massive multifocal right frontal lobe hemorrhage with leftward midline shift and likely uncal herniation Mannitol ordered at this time however none on the unit right, do not want to delay transport becuase of this. 1 unit of platelets hanging at this time. <CRYSTAL Wan Last Filed: 05/09/22 04:12> Time: 03:43 <CRYSTAL Wan Last Filed: 05/09/22 04:12> Reevaluation #3: Patient successfully intubated with 20 of etomidate, 50 of rocuronium, propofol per protocol ordered. Chest x-ray ordered to confirm placement of the tube, there was a color metric change. <CRYSTAL Wan Last Filed: 05/09/22 04:12> Time: 03:53 <CRYSTAL Wan Last Filed: 05/09/22 04:12> Additional Reevaluation(s): 401 CXR with good positioning of tube. 0406 Patient to be transfered to ED at this time. [facility] at the bedside. <CRYSTAL Wan Last Filed: 05/09/22 04:12> MDM - Head Injury MDM Narrative Medical decision making narrative: 030 71-year-old male presenting to the emergency department status post unwitnessed fall 20 minutes prior to his arrival. Noted to have left-sided deficits on exam, slurred speech. Past ED score of 5. Patient reports he is on aspirin and Plavix. Upon physical examination patient with left-sided deficits in facial droop. Patient with slurred speech and decreased sensation to upper and lower extremities. Patient controlling secretions at this time, and well maintained airway. NIH stroke scale 13 Concerns for intracranial hemorrhage, cervical fractures or dislocations. Plan at this time is to initiate stroke protocol. Will obtain a stat head CT for stroke, cervical spine, PT INR, CBC, CMP, magnesium, EKG. POC INR 1.1 and PT 12.8 Slight delay in obtaining head CT as there was a critical patient on CT table when patient arrived. <CRYSTAL Wan Last Filed: 05/09/22 04:12> Medical Records Attestation: I reviewed the patient's medical records. <CRYSTAL Wan Last Filed: 05/09/22 04:12> Lab Data Attestation: I reviewed the patient's lab results. <CRYSTAL Wan Last Filed: 05/09/22 04:12> Labs: Lab Results 05/09/22 05/09/22 05/09/22 Range/Units 03:09 03:10 03:37 Whole Blood PT 12.8 (11.1-13.5) sec Whole Blood INR 1.1 (0.9-1.1) POC Glucose 113 149 H (60-115) mg/dL <CRYSTAL Wan Last Filed: 05/09/22 04:12> Lab Results 05/09/22 05/09/22 05/09/22 Range/Units 03:09 03:10 03:37 Whole Blood PT 12.8 (11.1-13.5) sec Whole Blood INR 1.1 (0.9-1.1) POC Glucose 113 149 H (60-115) mg/dL <Marla Ames MD - Last Filed: 05/09/22 06:04> Procedures Intubation Time out performed: Yes <Marla Ames MD - Last Filed: 05/09/22 06:04> sedative: Etomidate <Marla Ames MD - Last Filed: 05/09/22 06:04> Mg Given: 20 <Marla Ames MD - Last Filed: 05/09/22 06:04> paralytic: Rocuronium <Marla Ames MD - Last Filed: 05/09/22 06:04> Mg Given: 50 <Marla Ames MD - Last Filed: 05/09/22 06:04> Laryngoscope: other (GlideScope) <Marla Ames MD - Last Filed: 05/09/22 06:04> ET Tube Size: 7.5 <Marla Ames MD - Last Filed: 05/09/22 06:04> ET Tube Uncuffed: No <Marla Ames MD - Last Filed: 05/09/22 06:04> Tube Secured Depth (cm): 23 <Marla Ames MD - Last Filed: 05/09/22 06:04> Tube Secured Location: lips <Marla Ames MD - Last Filed: 05/09/22 06:04> Tube Placement Confirmation: visualized tube passing through cords, equal breath sounds bilaterally, no breath sounds over epigastrium and confirmation by capnometry <Marla Ames MD - Last Filed: 05/09/22 06:04> Patient Tolerated Procedure: well and no complications <Marla Ames MD - Last Filed: 05/09/22 06:04> Intubation Complications: none <Marla Ames MD - Last Filed: 05/09/22 06:04> Critical Care Time Critical Care Time Critical Care Time: Yes <CRYSTAL Wan - Last Filed: 05/09/22 04:12> Total Critical Care Time: 50 <CRYSTAL Wan - Last Filed: 05/09/22 04:12> Attestation: I attest to this time spent taking care of the patient, obtaining history, physical, reviewing labs, imaging, speaking to my attending, speaking to specialist. <CRYSTAL Wan - Last Filed: 05/09/22 04:12> Discharge Plan Discharge Clinical Impression: Intracranial hemorrhage, Fall <CRYSTAL Wan - Last Filed: 05/09/22 04:12> Patient Disposition: [facility] <CRYSTAL Wan - Last Filed: 05/09/22 04:12> Transfer Details: Transfer to [facility] ED Accepting provider Dr. Grace FINDINGS: Large right frontal lobar hemorrhage extending into the basal ganglia with surrounding vasogenic edema. The dominant central hematoma measures over 7 cm, and there are additional smaller surrounding hematomas within the right frontal lobe. Small overlying subarachnoid hemorrhage along the right frontal lobe. There is leftward midline shift of 1.0 cm at the septum pellucidum. Right lateral ventricle is effaced. Suspect right uncal herniation. CT/CT head for stroke IMPRESSION: Massive multifocal right frontal lobe hemorrhage with leftward midline shift and likely uncal herniation. This critical result was discussed with Yo ROJAS at 05/09/2022 3:28 AM and it was ascertained that the content and urgency of the report was understood at the time of direct communication. <CRYSTAL Wan - Last Filed: 05/09/22 04:12> Transfer to [facility] ED Accepting provider Dr. Grace FINDINGS: Large right frontal lobar hemorrhage extending into the basal ganglia with surrounding vasogenic edema. The dominant central hematoma measures over 7 cm, and there are additional smaller surrounding hematomas within the right frontal lobe. Small overlying subarachnoid hemorrhage along the right frontal lobe. There is leftward midline shift of 1.0 cm at the septum pellucidum. Right lateral ventricle is effaced. Suspect right uncal herniation. CT/CT head for stroke IMPRESSION: Massive multifocal right frontal lobe hemorrhage with leftward midline shift and likely uncal herniation. This critical result was discussed with Yo ROJAS at 05/09/2022 3:28 AM and it was ascertained that the content and urgency of the report was understood at the time of direct communication. <Marla Ames MD - Last Filed: 05/09/22 06:04> Prescriptions: No Action clopidogrel [Plavix] 75 mg tablet 75 mg PO DAILY Qty: 90 1RF aspirin [Adult Aspirin Regimen] 81 mg tablet,delayed release (DR/EC) 81 mg PO DAILY rosuvastatin [Crestor] 10 mg tablet 10 mg PO DAILY Qty: 90 3RF <CRYSTAL Wan - Last Filed: 05/09/22 04:12> Interventions: Acute Care Transfer Worksheet (ED) Last Done: 05/09/22 05:53 <CRYSTAL Wan - Last Filed: 05/09/22 04:12> Discharge Date/Time: 05/09/22 04:25 <CRYSTAL Wan - Last Filed: 05/09/22 04:12>
[2022-05-09 03:43] LABS: Glucose, Whole Blood 149 mg/dL (60-115)
[2022-05-09] MEDS: propofoL 1,000 MG/100 ML VIAL 40 MG IVCONT (03:56)
[2022-05-09] MEDS: Etomidate 20 MG/10 ML VIAL IVPUSH (03:57)
[2022-05-09] MEDS: levETIRAcetam in NaCl (iso-os) 1,500 MG/100 ML PIGGYBACK 400 MG IV (03:57)
[2022-05-09] MEDS: Rocuronium Bromide 50 MG/5 ML VIAL IVPUSH (03:58)
--- NOTE | 2022-05-09 04:03 | PC.NURSE ---
Addendum entered by Katie Harris RN 05/09/22 04:26: 0425 EMS depart with pt Addendum entered by Katie Harris RN 05/09/22 04:20: BP 142/199 HR 150 Addendum entered by Katie Harris RN 05/09/22 04:18: 0418 HR 115 BP 166/88 O2 100% RR 16 Addendum entered by Katie Harris RN 05/09/22 04:18: 0416 moved to EMS stretcher Addendum entered by Katie Harris RN 05/09/22 04:13: 0414 Starting EMS ventilator Rate: 16 PEEP: 5 Total Volume:400 Addendum entered by Katie Harris RN 05/09/22 04:07: 0407 one unit of platelets done Addendum entered by Katie Harris RN 05/09/22 04:04: 0404: mannitol not given, not available, per provider. BP 164/86 HR 150 O2 100% Intubated with ambu ventilations in progress Original Note: 0403: Chest x-ray confirm tube placement. Only one unit of platelets wanted.
--- NOTE | 2022-05-09 04:12 | PC.NURSE ---
This US/Pct called [facility] line at 0317 for a stroke with a bleed Per Narcisa ROJAS. Action was called at 0325 for a stroke standby per Narcisa ROJAS. At 0320 Accepted patient to ER to ER. Action got here at 0334.
--- NOTE | 2022-05-09 05:04 | PC.NURSE ---
Addendum entered by Katie Harris RN 05/09/22 05:13: 0306: EMS arrival with pt Pt has been experiencing left side deficits after falling in his bathroom at home. Last known well time is 11:00 PM 05/08 EMS established an 18g IV in the right AC. POC was 132. EMS BP 172/79 Pt on plavix and aspirin 0310 ER POC 113, INR 1.[address] scan, previous pt still in scans. [address] scans 0325 pt in ED05 0328 RN established 20g in the right hand Pt intubated with 7.25, [address] showed frontal bleed with a left shift. 0343 Pt given etomidate 20 mg, rocuronium 50mg 0350 platelets started 0354 propofol 40mg/hr started 0358 Erickson placed, verbal order from provider 0359 x-ray confirmed placement of tube Addendum entered by Katie Harris RN 05/09/22 05:08: 0325 pt in ED05 0328 RN established 20g in the right hand Original Note: 0306: EMS arrival with pt Pt has been experiencing left side deficits after falling in his bathroom at home. Last known well time is 11:00 PM 05/08 EMS established an 18g IV in the right AC. POC was 132. EMS BP 172/79 Pt on plavix and aspirin 0310 ER POC 113, INR 1.[address] scan, previous pt still in scans. [address] scans
--- NOTE | 2022-05-09 05:27 | PC.NURSE ---
TIMELINE OF CARE 0306: EMS arrival with pt Pt has been experiencing left side deficits after falling in his bathroom at home. Last known well time is 11:00 PM 05/08 EMS established an 18g IV in the right AC. POC was 132. EMS BP 172/79 Pt on plavix and aspirin 0310 ER POC 113, INR 1.[address] scan, previous pt still in scans. [address] showed frontal bleed with a left shift. 0325 Pt in ED05 0328 RN established 20g in the right hand 0343 Pt given etomidate 20 mg, rocuronium 50mg 0345 Pt intubated with 7.25, 23 at the teeth. ambu bag ventilations in progress. 0350 platelets started 0353 20g IV placed in left ac 0354 propofol 40mg/hr started 0355 keppra running 0358 Erickson placed, verbal order from provider 0403: Chest x-ray confirmed tube placement. Per provider: only one unit of platelets wanted. 0404: mannitol not given, not available, provider aware. BP 164/86 HR 150 O2 100% Intubated with ambu ventilations in progress 0407 one unit of platelets done 0414 Starting EMS ventilator Rate: 16 PEEP: 5 Total Volume:400 0416 moved to EMS stretcher 0418 HR 115 BP 166/88 O2 100% RR 16 0425 EMS depart with pt to [place]
--- NOTE | 2022-05-09 05:44 | PC.NURSE ---
Pt arrived on EMS stretcher with C-Collar applied. Pt presented with left sided weakness and facial droop. Pt was unable to hold up his left hand or push down with his left foot. Pt had a left sided facial droop and had a hard time properly articulating his words. Pt was able to follow commands but easily became anxious and had a hard time keeping still. Upon inspection, his left eye did not seem to be tracking as the right eye did. Once sat up. pt was having a hard time clearing his secretions. Suction was initiated but pt continued to gag. The decision was made to sedate and intubate the pt.
--- NOTE | 2022-05-09 06:33 | PC.NURSE ---
0332 Provider at bedside, ambulance arrived. Verbal order to disregard labs at this time, patient is to be transferred immediately to [facility]. ALS crew at bedside for transfer of care.
== END 2022-05-09 04:25 | disposition short-term general hospital (02) ==
PROVIDERS: Emergency Provider Emergency Medicine
DX: S06.309A Unspecified focal traumatic brain injury with loss of consciousness of unspecified duration, initial encounter (principal); W18.30XA Fall on same level, unspecified, initial encounter; M54.2 Cervicalgia; E78.5 Hyperlipidemia, unspecified; F17.210 Nicotine dependence, cigarettes, uncomplicated; Z79.82 Long term (current) use of aspirin; Z79.02 Long term (current) use of antithrombotics/antiplatelets; F12.90 Cannabis use, unspecified, uncomplicated; Y93.89 Activity, other specified; Y92.013 Bedroom of single-family (private) house as the place of occurrence of the external cause; Y99.9 Unspecified external cause status
CPT/HCPCS: 31500; 70450; 71045; 72125; 82947; 85610; 96374; 96375; 99285; 99291; J1953; P9073